=== PATIENT | male | born 1935 | race Caucasian/White ===

== ENCOUNTER → 2016-07-14 | Outpatient (CLI) | payer OTHER, MEDICARE | LOC: MMPC 11:11 | PROVIDERS: ATTEND Internal Medicine | DX: S32.011G Stable burst fracture of first lumbar vertebra, subsequent encounter for fracture with delayed healing (principal); K59.03 Drug induced constipation; T40.2X5A Adverse effect of other opioids, initial encounter | CPT/HCPCS: 99214; G0463 ==

== ENCOUNTER 2016-07-15 11:56 | Inpatient (IN) | payer OTHER, MEDICARE ==
[2016-07-15 12:41] LABS: BASOPHILS # (AUTO) 0.01 10*3/UL; BASOPHILS % (AUTO) 0.1 % (0-1); EOSINOPHILS % (AUTO) 0.2 % (0-8); HEMATOCRIT 40.3 % (42.0-52.0); HEMOGLOBIN 14.2 g/dL (14.0-18.0); IMM GRAN % (AUTO) 0.2 % (0-5); IMM GRAN# (AUTO) 0.02 10*3/UL; LYMPHOCYTES # (AUTO) 1.28 10*3/uL; LYMPHOCYTES % (AUTO) 12.9 % (10-50); MEAN CORPUSCULAR HEMOGLOBIN 30.9 PG (27-31); MEAN CORPUSCULAR HGB CONC 35.2 g/dL (33-37); MEAN PLATELET VOLUME 9.8 FL (7.4-12.2); MONOCYTES # (AUTO) 0.86 10*3/UL (0.3-0.8); MONOCYTES % (AUTO) 8.6 % (5-15); NEUTROPHILS # (AUTO) 7.76 10*3/UL; RDW COEFFICIENT OF VARIATION 12.5 % (11.5-14.5); WHITE BLOOD COUNT 9.95 10^3/uL (4.8-10.8)
[2016-07-15 12:42] LABS: PLATELET MORPHOLOGY COMMENT NORMAL MORPHOLOGY (NORM)
[2016-07-15 12:52] LABS: BILIRUBIN,TOTAL 1.4 mg/dL (0.3-1.2); BLOOD UREA NITROGEN 25 mg/dL (7-22); BUN/CREATININE RATIO 27.77 (6-20); CALCIUM 8.9 mg/dL (8.7-10.7); CHLORIDE 105 meq/L (98-112); CREATININE 0.9 mg/dL (0.70-1.50); GLUCOSE 124 mg/dL (78-110); SODIUM 137 meq/L (135-145)
[2016-07-15 12:53] LABS: ASPARTATE AMINO TRANSFERASE 18 IU/L (21-57); TOTAL PROTEIN 7.6 g/dL (6.1-8.0)
--- NOTE | 2016-07-15 13:05 | DI ---
XR RIBS W/PA CXR MIN 3VW,07/15/2016 12:18 PM: Clinical History: Right rib pain Previous Exam: 05 November 2013 Findings: Multiple views of the wall are obtained, and demonstrate some subsegmental atelectasis in the lung ba ses. There is no fracture identified. Visualized portions of the thoracic and lumbar spine demonstrate some compression deformities which a re not well evaluated on this exam. Impression: No evidence of displaced fracture. No evidence of pneumothorax.
[2016-07-15] MEDS ORDERED: Sodium Chloride 0.9% 1,000 ML PRIMARY IV ONE (13:10)
--- NOTE | 2016-07-15 14:16 | DI ---
CT CTA CHEST NONCORONARY W/WO,07/15/2016 1:09 PM: Clinical History: Right chest pain and elevated d-dimer. Previous Exam: None at this facility. Findings: Multiple helically acquired CT images are obtained through the chest following a CT chest angiogram p rotocol, and demonstrate a massive irregular thyroid gland with large hypodense masses within the inf erior left thyroid lobe. There are multiple pulmonary emboli noted predominantly on the right where t his involves the lobar branches. There are some segmental branches involved within the left lower lob e. There is a small right pleural effusion. Subsegmental atelectasis is also noted within the left lung base. Impression: 1. Bilateral pulmonary emboli worse on the right than the left. 2. Large thyroid masses predominantly involving the left lobe of the thyroid inferiorly. Consider son ographic evaluation.
--- NOTE | 2016-07-15 15:12 | PDOC ---
Chest Pain HPI - General Chief Complaint: Respiratory Complaint Stated Complaint: Rt rib pain, shortness of breath Date Seen by Provider: 07/15/16 Time Seen by Provider: 12:00 Source: Patient, Spouse, Old records Exam Limitations: POSITIVE: No limitations Treatment Prior to Arrival: REPORTS: None Nurse's Notes Reviewed & Considered: Yes - History of Present Illness Initial Comments: The patient is a 81 year old male complaining of pain to the anterolateral aspect of the right thorax. Patient states he was sleeping last night on a couch and he was awakened around 7 PM with pain, pleuritic in care provider, right anterolateral thorax. Recent past medical history is significant in that he fell out of some rafters and sustained a compression fracture of L1. This has been giving him quite a bit of pain and he does see Dr. Noyola for this and he does use a back brace; a new back brace has recently been ordered for him and his tells me that this back brace it should be arriving from [place] tomorrow. Patient also sustained a laceration to his left axilla during this fall, which has been repaired and has healed well. Patient uses a walker and has not been very active, especially since his fall on May 24. Patient has not had any recent coughs or fevers. No skin lesions. Body Location Affected: REPORTS: Chest (Right anterolateral thorax) Timing: REPORTS: Abrupt Duration: <24 hours (Onset first noted around 7 PM last night) Severity: Moderate Persistent/Worse since (date): 07/14/16 Persistent/Worse since (time): 19:00 Context: REPORTS: Rest Quality: REPORTS: "Pain", Sharpness, Tenderness Radiation: REPORTS: None Associated Symptoms: REPORTS: Shortness of Breath, Hurts to Breathe. DENIES: Nausea, Vomiting, Diaphoresis, Palpitations, Productive Cough (blood), Productive Cough (sputum), Weakness, Dizziness Modifying Factors: improves with: None Reported Similar Symptoms Previously: No Recently seen/treated/hospitalized: Yes (as above) Any Prior Injuries Related to Current Complaint?: No - Patient Home Medications Home Medications: Home Medications Hydrocodone/Acetaminophen [Hydrocodon-Acetaminophn 10-325] 1 tab PO Q4-6H #90 tab 06/30/16 - Patient Allergies Allergies/Adverse Reactions: Allergies Allergy/AdvReac Type Severity Reaction Status Date / Time No Known Drug Allergies Allergy NOT Verified 07/15/16 11:58 APPLICABLE Past Medical History - heen HEENT History: Dentures/Partials, Other (please comment) Additional HEENT History: WEARS GLASSES Cardiovascular History: Arrhythmia Additional Cardiovasular History: 2001 ARRYTHMIA BUT NO PROCEDURE DONE Respiratory History: Sleep Apnea Gastrointestinal History: GERD, Other (please comment) Additional Gastrointestinal History: OCCASSIONAL CONSTIPATION FROM NARCOTIC USE FOR BACK INJURY Genitourinary History: Denies History Endocrine History: Denies History Musculoskeletal History: Arthritis, Other (please comment) Prosthesis or Implant: No Additional Musculoskeletal History: RECENT FALL WITH COMPRESSION FRACTURE OF L2 Neurological History: Other (please comment) Additional Neurological History: OCCASIONAL VERTIGO Blood Disorders: Denies History Psychiatric History: Denies History History of Sexually Transmitted Diseases: No Male Reproductive History: Denies History Cancer History: Denies History In Past Year Been Physically Harmed or Verbally Threatened: No (PER PATIENT) History of MDRO: No History of Other Communicable Diseases: No Tobacco Use: Former Smoker Alcohol Use: Rarely Substance Use Type: None Previous Surgical History: Yes Type / Date of Surgery: tonsillectomy, hemorrhoidectomy/BILATERAL CATARACT EXT/ RIGHT KNEE SCOPE Anesthesia Reactions: No Malignant Hyperthermia: No Family History of Malignant Hyperthermia: No Significant Family History: Heart disease, Cancer Past Medical History Reviewed: Reviewed - No Changes ROS - Limitations ROS Limitations: No Limitations Constitution: REPORTS: Denies Symptoms Cardiovascular: REPORTS: Chest Pain (Pleuritic right-sided chest pain) Respiratory: REPORTS: Hurts To Breathe, Shortness Of Breath Neurological: REPORTS: Denies Neuro Symptoms Gastrointestinal: REPORTS: Denies GI Symptoms Endocrine: REPORTS: Denies Symptoms Musculoskeletal: REPORTS: Muscle Aches (Right anterolateral thorax) Genitourinary: REPORTS: Denies Symptoms Eyes: REPORTS: Denies Symptoms ENT: REPORTS: Denies Symptoms Skin: REPORTS: Denies Skin Symptoms Lympathic: REPORTS: Denies Lympathic Symptoms Immunologic: POSITIVE: Denies Symptoms Psychiatric: POSITIVE: Denies Psych Symptoms Chest Pain PE - General Appearance General Appearance: REPORTS: Alert, Cooperative, No Evidence of Trauma, Moderate Distress - HEENT HEENT: POSITIVE: Head Inspection Nml, Eyes Inspection Nml, Ears Inspection Nml, Nose Inspection Nml, Oral/Dental Inspect. Nml, Pharynx Inspect. Nml, PERRL, EOMI - Neck Neck: REPORTS: Normal Inspection, No Carotid Bruit - Respiratory Respiratory: REPORTS: No Respiratory Distress, Breath Sounds Normal, Chest Non- Tender - Cardiovascular Cardiovascular: REPORTS: Regular Rate and Rhythm, Heart Sounds Normal, Equal Pulses, Strong Pulses, No Murmur, No Gallop, No Friction Rub, No JVD, Other ( Some pain on palpation right anterolateral thorax) Peripheral Pulses: Radial (R): 2+, Radial (L): 2+ - Abdomen Abdomen: Soft: (All Quadrants), Normal Bowel Sounds: (All Quadrants), Denies Tenderness: (All Quadrants), No Splenomegaly: (All Quadrants), No Hepatomegaly: (All Quadrants), No Guarding: (All Quadrants), No Rebound: (All Quadrants), No Palpable Pulse: (All Quadrants), No Palpabale Mass: (All Quadrants), No Distention: (All Quadrants), No Rigidity: (All Quadrants) - Skin Skin: REPORTS: Intact, Normal For Race, Warm, Dry, No Rash - Extremities Extremity: Non-Tender: (All Extremities), Normal ROM: (All Extremities), Normal Inspection: (All Extremities) - Neurological / Psychological Neurological: POSITIVE: Oriented X3, silk spotter Normal As Tested, Motor Normal, Sensation Normal, 5, 6 Images - Complete Complete: 1 - Area of described pain was some pain on palpation Chest Pain Progress - Results Reviewed by me Xrays/CTs/US Reviewed by me: Yes Discussed with Radiologist: Yes Radiology Findings: Bilateral pulmonary emboli on CTA, right greater than left. Enlarged thyroid also noted incidentally. Lab Results Reviewed: Yes (d-dimer 3.55) Lab Results:: Laboratory Results 07/15/16 Range/Units 12:32 WBC 9.95 (4.8-10.8) 10^3/uL RBC 4.60 L (4.70-6.10) 10^6/uL Hgb 14.2 (14.0-18.0) g/dL Hct 40.3 L (42.0-52.0) % MCV 87.6 (80-90) FL MCH 30.9 (27-31) PG MCHC 35.2 (33-37) g/dL RDW Std Deviation 38.9 L (39-50) fL RDW Coeff of Sj 12.5 (11.5-14.5) % Plt Count 221 (140-350) 10*3/uL MPV 9.8 (7.4-12.2) FL Immature Gran % (Auto) 0.2 (0-5) % Neut % (Auto) 78.0 (50-80) % Lymph % (Auto) 12.9 (10-50) % [place] % (Auto) 8.6 (5-15) % Eos % (Auto) 0.2 (0-8) % Baso % (Auto) 0.1 (0-1) % Immature Gran # (Auto) 0.02 10*3/UL Neut # (Auto) 7.76 10*3/UL Lymph # (Auto) 1.28 10*3/uL [place] # (Auto) 0.86 H (0.3-0.8) 10*3/UL Eos # (Auto) 0.02 10*3/UL Baso # (Auto) 0.01 10*3/UL WBC Morphology Comment Normal morphology (NORM) Plt Morphology Comment Normal morphology (NORM) RBC Morph Comment Normal morphology (NORM) D-Dimer 3.55 H (0.00-0.59) mg/L Sodium 137 (135-145) meq/L Potassium 4.0 (3.8-5.2) meq/L Chloride 105 (98-112) meq/L Carbon Dioxide 22 L (23-33) meq/L Anion Gap 10 (5-20) BUN 25 H (7-22) mg/dL Creatinine 0.9 (0.70-1.50) mg/dL Estimated GFR Metal Furniture Assembler BUN/Creatinine Ratio 27.77 H (6-20) Glucose 124 H (78-110) mg/dL Calculated Osmolality 288.0 (267-292) mOsm/kg Calcium 8.9 (8.7-10.7) mg/dL Total Bilirubin 1.4 H (0.3-1.2) mg/dL AST 18 L (21-57) IU/L ALT 24 (21-72) IU/L Alkaline Phosphatase 69 (38-126) IU/L Total Protein 7.6 (6.1-8.0) g/dL Albumin 4.0 (3.5-4.8) g/dL Globulin 3.6 (2.50-4.10) g/dL Albumin/Globulin Ratio 1.10 L (1.3-2.0) mg/g - Patient's Progress Pain Medication Addressed: POSITIVE: No School/Work Release Addressed: POSITIVE: Not Applicable Re-Examine Time: 14:00 Status: POSITIVE: Improved, Re-Examined - Consult Consult (If Yes, Name of Consulting MD & Time Called): Yes (Dr. Butler, hospitalist, 1400) Consulting MD will see pt:: POSITIVE: [facility] [place] Admit Counseled: POSITIVE: Patient, Family, RE: Lab Results, RE: Radiology Results, RE : DX, RE: Need for F/U Patient Care Time - Estimated PCT Patient Care Time (In Minutes): 50 Vital Signs - Recent Vital Signs Vital Signs: Vital Signs (Last 8 hours) Temp Pulse Pulse Resp BP BP Pulse Ox 07/15/16 14:40 98.7 F 75 17 121/75 93 07/15/16 14:38 98.7 F 84 17 125/71 93 07/15/16 11:56 98.1 F 84 21 125/71 93 - VS Reviewed Vital Signs Reviewed: Yes Discharge Clinical Impression: Pulmonary embolism, Thyroid mass of unclear etiology Discharge Disposition: Admit to Inpatient Condition: Fair Date Decision to Admit to Inpatient: 07/15/16 Time Decision to Admit to Inpatient: 13:45
[2016-07-15] MEDS ORDERED: NORMAL SALINE 10 ML SYRINGE FLUSH IVP PRN (15:30)
--- NOTE | 2016-07-15 15:37 | PDOC ---
History and Physical - History of Present Illness Date and Time of Service: 07/15/2016 3 PM Chief Complaint: Right-sided chest pain that started last night History of Present Illness: This is a 81 years old male with medical history significant for admission back in May after a fall that resulted in L1 compression fracture and also sacral fracture after his hospital stay he was discharged home he continued to go to physical therapy but he said his pain continued so he was seen by the neurosurgeon and they're arranging for him to get a brace, in addition he is getting pain medication trying to control his pain. Last night he developed the pain in the right side of the chest worse this morning he couldn't take a deep breath and he came into the ER evaluation in the ER revealed an elevated d- dimer and a CT of the chest showed bilateral pulmonary emboli worse on the right compared to the left and hence the admission. He did report swelling in his legs but this is being going on since his last admission. No pain in his legs. Past Medical History Medical History: 1. Bilateral knee osteoarthritis. 2. Admission in May after a fall that resulted in L1 fracture and sacral fracture. He also had the laceration under his left axilla. Surgical History: 1. Bilateral cataracts. 2. Hemorrhoid repair. 3. Colonoscopy in 2008 Pertinent Family History: Significant for colon cancer. His mother of a heart attack many years ago. Past Social History: , has 3 kids described as healthy, does not smoke, drinks occasionally. Tobacco Use: Former Smoker Substance Use Type: None Alcohol Use: Rarely Medication / Allergies Home Medications: Home Medications Medication Instructions Recorded Confirmed Type Hydrocodone/Acetaminophen 1 tab PO Q4-6H #90 tab 06/30/16 07/15/16 Clinic [Hydrocodon-Acetaminophn 10-325] Allergies/Adverse Reactions: Allergies Allergy/AdvReac Type Severity Reaction Status Date / Time No Known Drug Allergies Allergy NOT Verified 07/16/16 02:23 APPLICABLE Review of Systems - Review of Systems All Systems: Reviewed & No Additional Complaints Except as Stated Exam - Vitals Vital Signs: Vital Signs Temperature 98.4 F Temperature Source Temporal Artery Scan Pulse Rate [Pulse Oximeter] 76 Pulse Rate 75 Respiratory Rate 20 Blood Pressure [Left Arm] 146/77 Blood Pressure 121/75 Pulse Ox 94 Oxygen Flow Rate 2 Oxygen Delivery Method Nasal Cannula Height 5 ft 9 in Weight 194 lb - General General Appearance: POSITIVE: No Acute Distress, Cooperative - Head Head Exam: POSITIVE: Normal Inspection - Eye Eye Exam: POSITIVE: Normal Appearance - ENT ENT Exam: POSITIVE: Normal Exam - Neck Neck Exam: POSITIVE: Normal Inspection - Respiratory Respiratory Exam: POSITIVE: Clear to Auscultation - Bilaterally - Cardiovascular Cardiovascular Exam: POSITIVE: RRR - GI/Abdominal GI/Abdominal Exam: POSITIVE: Normal Bowel Sounds, Non Tender, Non Distended - Rectal Rectal Exam: POSITIVE: Deferred - External Exam: POSITIVE: Deferred - Extremities Extremities Exam: POSITIVE: +1 Edema Additional Extremities Exam Details: There is swelling in both legs worse on the left compared to the right - Back Back Exam: POSITIVE: Normal Inspection - Neurological Neurological Exam: POSITIVE: Alert, Oriented x 3, CN II-XII Intact, Moves All Extremities Equally - Psychiatric Psychiatric Exam: POSITIVE: Normal Affect - Integumentary Integumentary Exam: POSITIVE: Normal Color Results - Labs CBC and BMP: 07/15/16 12:32 07/15/16 12:32 - Imaging Status: Report Reviewed by Me (CT of the chest showed bilateral pulmonary emboli worse on the right than the left, large thyroid masses predominantly involving the left lobe of the thyroid inferiorly) Assessment and Plan - Patient Problems (1) Pulmonary emboli Current Visit: Yes Status: Acute Comment: The CT that he had showed bilateral pulmonary emboli, worse on the right compared to the left. After discussion I think will put him on eliquis will watch him we'll watch his pain level and his oxygen needs and then go from there. Will order an ultrasound of his legs for tomorrow. (2) Compression fracture of first lumbar vertebra Current Visit: No Status: Acute Comment: This is old continue previous pain medications Qualifiers: Encounter type: initial encounter Fracture type: closed Qualified Description: Compression fracture of first lumbar vertebra, closed, initial encounter Qualifier Code(s): (S32.010A) Wedge compression fracture of first lumbar vertebra, initial encounter for closed fracture
[2016-07-15] MEDS ORDERED: HYDROcodone-APAP 10 MG-325 MG TABLET PO SCH (15:45)
[2016-07-15] MEDS: Apixaban 5 MG TABLET PO SCH ×2 (15:46→20:53)
[2016-07-15] MEDS ORDERED: CALCIUM CARBONATE 500 MG (TUMS) CHEWABLE TABLET PO PRN (20:31)
[2016-07-15] MEDS ORDERED: CALCIUM CARBONATE 500 MG (TUMS) CHEWABLE TABLET PO ONE (20:53)
[2016-07-15] MEDS: HYDROcodone-APAP 10 MG-325 MG TABLET PO PRN (20:53)
--- NOTE | 2016-07-16 07:37 | PDOC(PROG) ---
Date and Time of Service: 07/16/2016 7:37 AM Interval History: Subjective Patient feels better, the pain in his chest is gone now. No shortness of breath. He still have pain in his back. Objective : Data - Labs CBC and BMP: 07/16/16 09:10 07/15/16 12:32 Objective : Exam - General General Appearance: No Acute Distress, Cooperative - Head Head Exam: Normal Inspection, Atraumatic - Eye Eye Exam: Normal Appearance - ENT ENT Exam: Normal Exam - Neck Neck Exam: Normal Inspection - Respiratory Additional Respiratory Exam Details: Slightly decreased breath sound on the right lung base - Cardiovascular Cardiovascular Exam: RRR - GI/Abdominal GI/Abdominal Exam: Normal Bowel Sounds, Non Tender, Non Distended, Soft - Rectal Rectal Exam: Deferred - External Exam: Deferred - Extremities Extremities Exam: +1 Edema - Back Back Exam: Normal Inspection - Neurological Neurological Exam: Alert, Oriented x 3, CN II-XII Intact - Psychiatric Psychiatric Exam: Normal Affect - Integumentary Integumentary Exam: Normal Color Assessment and Plan - Patient Problems (1) Pulmonary emboli Current Visit: Yes Status: Acute Comment: He is on eliquis continue. I think will watch him another night we'll see how things look tomorrow then will decide whether he is ready to go home. will do an ECHO (2) Compression fracture of first lumbar vertebra Current Visit: No Status: Acute Comment: Continue current pain medications Qualifiers: Encounter type: initial encounter Fracture type: closed Qualified Description: Compression fracture of first lumbar vertebra, closed, initial encounter Qualifier Code(s): (S32.010A) Wedge compression fracture of first lumbar vertebra, initial encounter for closed fracture (3) DVT (deep venous thrombosis) Current Visit: Yes Status: Acute Comment: Ultrasound per my discussion with the technologist suggest DVT in the left leg. Continue same treatment.
[2016-07-16] MEDS: HYDROcodone-APAP 10 MG-325 MG TABLET PO PRN ×2 (07:59→21:38)
[2016-07-16] MEDS: POLYETHYLENE GLYCOL 3350 17 GM POWDER PO SCH (08:00)
[2016-07-16] MEDS: Apixaban 5 MG TABLET PO SCH ×2 (08:00→21:37)
[2016-07-16 09:19] LABS: BASOPHILS # (AUTO) 0.02 10*3/UL; BASOPHILS % (AUTO) 0.3 % (0-1); EOSINOPHILS % (AUTO) 0.4 % (0-8); IMM GRAN % (AUTO) 0.1 % (0-5); IMM GRAN# (AUTO) 0.01 10*3/UL; LYMPHOCYTES # (AUTO) 1.15 10*3/uL; LYMPHOCYTES % (AUTO) 17.2 % (10-50); MEAN CORPUSCULAR HEMOGLOBIN 29.9 PG (27-31); MEAN CORPUSCULAR HGB CONC 34.2 g/dL (33-37); MEAN PLATELET VOLUME 9.9 FL (7.4-12.2); MONOCYTES # (AUTO) 0.81 10*3/UL (0.3-0.8); MONOCYTES % (AUTO) 12.1 % (5-15); NEUTROPHILS # (AUTO) 4.66 10*3/UL; NEUTROPHILS % (AUTO) 69.9 % (50-80); RDW COEFFICIENT OF VARIATION 12.3 % (11.5-14.5); RED BLOOD COUNT 4.35 10^6/uL (4.70-6.10); WHITE BLOOD COUNT 6.68 10^3/uL (4.8-10.8)
[2016-07-16 09:21] LABS: PLATELET MORPHOLOGY COMMENT NORMAL MORPHOLOGY (NORM)
--- NOTE | 2016-07-16 13:06 | DI ---
US UP/LOW EXTREMITY VEINS B/L,07/16/2016 7:00 AM: Clinical History: Pulmonary emboli and lower extremity swelling. Previous Exam: None at this facility. Findings: Multiple grayscale and color Doppler sonographic images are obtained through the deep veins of both l ower extremities, and demonstrate complete coaptation upon graded compression throughout the deep vei ns of the right lower extremity. Within the left lower extremity, there is a nonocclusive thrombus involving the left popliteal vein. Impression: 1. Thrombus of the left popliteal vein.
[2016-07-17] MEDS: POLYETHYLENE GLYCOL 3350 17 GM POWDER PO SCH (08:36)
[2016-07-17] MEDS: Apixaban 5 MG TABLET PO SCH (08:36)
--- NOTE | 2016-07-17 09:06 | PDOC(PROG) ---
Date and Time of Service: 07/17/2016 9 AM Interval History: Subjective Patient feeling okay denying symptoms. No chest pain. No shortness of breath. Objective : Data - Labs CBC and BMP: 07/16/16 09:10 07/15/16 12:32 Labs - Last 24 Hours: Laboratory Results 07/16/16 Range/Units 09:10 WBC 6.68 (4.8-10.8) 10^3/uL RBC 4.35 L (4.70-6.10) 10^6/uL Hgb 13.0 L (14.0-18.0) g/dL Hct 38.0 L (42.0-52.0) % MCV 87.4 (80-90) FL MCH 29.9 (27-31) PG MCHC 34.2 (33-37) g/dL RDW Std Deviation 38.8 L (39-50) fL RDW Coeff of Sj 12.3 (11.5-14.5) % Plt Count 222 (140-350) 10*3/uL MPV 9.9 (7.4-12.2) FL Immature Gran % (Auto) 0.1 (0-5) % Neut % (Auto) 69.9 (50-80) % Lymph % (Auto) 17.2 (10-50) % [place] % (Auto) 12.1 (5-15) % Eos % (Auto) 0.4 (0-8) % Baso % (Auto) 0.3 (0-1) % Immature Gran # (Auto) 0.01 10*3/UL Neut # (Auto) 4.66 10*3/UL Lymph # (Auto) 1.15 10*3/uL [place] # (Auto) 0.81 H (0.3-0.8) 10*3/UL Eos # (Auto) 0.03 10*3/UL Baso # (Auto) 0.02 10*3/UL WBC Morphology Comment Normal morphology (NORM) Plt Morphology Comment Normal morphology (NORM) RBC Morph Comment Normal morphology (NORM) Troponin I 0.010 (< 0.040) ng/mL Objective : Exam - General General Appearance: No Acute Distress, Cooperative - Head Head Exam: Normal Inspection - Eye Eye Exam: Normal Appearance - Neck Neck Exam: Normal Inspection - Respiratory Respiratory Exam: Clear to Auscultation - Bilaterally - Cardiovascular Cardiovascular Exam: RRR - GI/Abdominal GI/Abdominal Exam: Normal Bowel Sounds, Non Tender, Non Distended, Soft - Rectal Rectal Exam: Deferred - External Exam: Deferred - Extremities Extremities Exam: Normal Inspection - Back Back Exam: Normal Inspection - Neurological Neurological Exam: Alert, Oriented x 3, CN II-XII Intact - Psychiatric Psychiatric Exam: Normal Affect - Integumentary Integumentary Exam: Normal Color Assessment and Plan - Patient Problems (1) Pulmonary emboli Current Visit: Yes Status: Acute Comment: He is improving however he cannot afford the eliquis so we will switch him to Lovenox check his INR and probably also start Coumadin tonight. We will keep him another night. (2) Compression fracture of first lumbar vertebra Current Visit: No Status: Acute Comment: Same medications Qualifiers: Encounter type: initial encounter Fracture type: closed Qualified Description: Compression fracture of first lumbar vertebra, closed, initial encounter Qualifier Code(s): (S32.010A) Wedge compression fracture of first lumbar vertebra, initial encounter for closed fracture (3) DVT (deep venous thrombosis) Current Visit: Yes Status: Acute Comment: He'll be on Lovenox and Coumadin instead of the eliquis (4) Thyromegaly Current Visit: Yes Status: Acute Comment: He needs a ultrasonic of the thyroid I told him as an outpatient.
[2016-07-17 09:27] LABS: PROTHROMBIN TIME 11.4 secs (9.7-11.4)
[2016-07-17] MEDS: Warfarin 5 MG TAB PO SCH (21:40)
[2016-07-17] MEDS: ENOXAPARIN SODIUM 100 MG/1 ML SYRINGE SUBCUT SCH (21:41)
[2016-07-18 06:33] LABS: PROTHROMBIN TIME 11.3 secs (9.7-11.4)
[2016-07-18 06:47] LABS: FREE T4 (FREE THYROXINE) 2.65 ng/dL (0.93-1.71)
[2016-07-18] MEDS: ENOXAPARIN SODIUM 100 MG/1 ML SYRINGE SUBCUT SCH ×2 (08:23→20:55)
--- NOTE | 2016-07-18 08:58 | PDOC(PROG) ---
Date and Time of Service: 07/18/2016 8:45 AM Interval History: Subjective Patient denying chest pain, no shortness of breath. Some swelling in his legs but no other symptoms. Objective : Data - Labs CBC and BMP: 07/16/16 09:10 07/15/16 12:32 Labs - Last 24 Hours: Laboratory Results 07/16/16 07/17/16 07/18/16 Range/Units 05:48 09:05 06:07 PT 11.4 11.3 (9.7-11.4) secs INR 1.10 1.10 (0.00-5.90) N/A TSH 0.015 L (0.2700-4.2000) uIU/mL Free T4 2.65 H (0.93-1.71) ng/dL Objective : Exam - General General Appearance: No Acute Distress, Cooperative - Head Head Exam: Normal Inspection - Eye Eye Exam: Normal Appearance - ENT ENT Exam: Normal Exam - Neck Neck Exam: Normal Inspection - Respiratory Additional Respiratory Exam Details: Slightly decreased breath sounds on the right lung base - Cardiovascular Cardiovascular Exam: RRR - GI/Abdominal GI/Abdominal Exam: Normal Bowel Sounds, Non Tender, Non Distended, Soft - Rectal Rectal Exam: Deferred - External Exam: Deferred - Extremities Extremities Exam: Normal Inspection - Back Back Exam: Normal Inspection - Neurological Neurological Exam: Alert, Oriented x 3, CN II-XII Intact, Moves All Extremities Equally - Psychiatric Psychiatric Exam: Normal Affect - Integumentary Integumentary Exam: Normal Color Assessment and Plan - Patient Problems (1) Pulmonary emboli Current Visit: Yes Status: Acute Comment: Continue Lovenox and Coumadin we started those last night because he could not afford eliquis and today he and his were concerned about the cost of Lovenox, so I think we'll keep him now on the Lovenox and Coumadin and wait for the disease case manager rn to check the cost of Lovenox and if still expensive I told him we'll keep him here until his INR is therapeutic and then will discharge him on Coumadin only. (2) Compression fracture of first lumbar vertebra Current Visit: No Status: Acute Comment: Same pain medication Qualifiers: Encounter type: initial encounter Fracture type: closed Qualified Description: Compression fracture of first lumbar vertebra, closed, initial encounter Qualifier Code(s): (S32.010A) Wedge compression fracture of first lumbar vertebra, initial encounter for closed fracture (3) DVT (deep venous thrombosis) Current Visit: Yes Status: Acute Comment: Same treatment with Lovenox and Coumadin (4) Thyromegaly Current Visit: Yes Status: Acute Comment: This need F/U as an outpatient with US
[2016-07-18] MEDS: POLYETHYLENE GLYCOL 3350 17 GM POWDER PO SCH (09:43)
[2016-07-18] MEDS: Warfarin 5 MG TAB PO SCH (20:55)
[2016-07-19] MEDS: HYDROcodone-APAP 10 MG-325 MG TABLET PO PRN ×2 (02:47→16:41)
[2016-07-19 07:00] LABS: PROTHROMBIN TIME 11.6 secs (9.7-11.4)
[2016-07-19] MEDS: POLYETHYLENE GLYCOL 3350 17 GM POWDER PO SCH (08:38)
[2016-07-19] MEDS: ENOXAPARIN SODIUM 100 MG/1 ML SYRINGE SUBCUT SCH ×2 (08:57→20:21)
[2016-07-19 13:32] LABS: FREE T4 (FREE THYROXINE) 2.78 ng/dL (0.93-1.71)
--- NOTE | 2016-07-19 19:36 | PDOC(PROG) ---
Date and Time of Service: 07/19/2015, 1930 Interval History: Seen the patient to a 3 times a day now, evaluated earlier and evaluated this evening. No complains of chest pain, shortness breath, nausea or vomiting. His breathing is significantly better. The patient notes to me that he has lost about 35 pounds in the last couple of months. The patient's TSH and free T4 suggested hyperthyroidism on admission, and I repeated those for confirmation and they indeed are positive for hyperthyroidism. I did an ultrasound and the results are pending until tomorrow. From the standpoint of the blood clot, we feel that we have a good plan with Lovenox and Coumadin, but I did not feel comfortable sending him home with hyperthyroidism until we have the ultrasound results and we can discuss with either surgery and/or endocrinology in [place] tomorrow. At this point, I'm going to hold off on suppressive therapy, and if he develops any tachycardia I will start a beta rayna. Objective : Data - Labs CBC and BMP: 07/16/16 09:10 07/15/16 12:32 Labs - Last 24 Hours: Laboratory Results 07/19/16 07/19/16 Range/Units 06:00 12:29 PT 11.6 H (9.7-11.4) secs INR 1.12 (0.00-5.90) N/A TSH < 0.015 L (0.2700-4.2000) uIU/mL Free T4 2.78 H (0.93-1.71) ng/dL Objective : Exam - General General Appearance: No Acute Distress, Cooperative Additional General Exam Details: Vital Signs - Last Taken Temperature 98.8 F 07/19/16 16:00 Pulse Rate 64 07/19/16 16:00 Respiratory Rate 18 07/19/16 16:00 Blood Pressure 141/71 07/19/16 16:00 Pulse Ox 95 07/19/16 16:00 - Head Head Exam: Normal Inspection, Normocephalic, Atraumatic - Eye Eye Exam: No Scleral Icterus - Neck Neck Exam: Normal Inspection, No Tenderness, No Thyromegaly Additional Neck Exam Details: I don't appreciate any thyromegaly. Might be a little more full on the right, but it's very difficult to appreciate and subtle - Respiratory Respiratory Exam: Clear to Auscultation - Bilaterally, Breathing Non Labored - Cardiovascular Cardiovascular Exam: RRR, No Murmur, No Clicks, No Gallops, No Rubs, No JVD - GI/Abdominal GI/Abdominal Exam: Normal Bowel Sounds, Non Tender, Non Distended, Soft - Extremities Extremities Exam: No Clubbing Present, No Edema Present, No Cyanosis Present - Neurological Neurological Exam: Alert, Oriented x 3, No Facial Droop, Speech Intact / Clear, Moves All Extremities Equally - Psychiatric Psychiatric Exam: Normal Affect, Normal Mood Assessment and Plan - Patient Problems (1) Pulmonary emboli Current Visit: Yes Status: Acute (2) Hyperthyroidism Current Visit: Yes Status: Acute (3) DVT (deep venous thrombosis) Current Visit: Yes Status: Acute Qualifiers: DVT location: lower extremity Affected thrombotic vein of extremity: popliteal Laterality: left Chronicity: acute Qualified Description: Acute deep vein thrombosis (DVT) of popliteal vein of left lower extremity Qualifier Code(s): (I82.432) Acute embolism and thrombosis of left popliteal vein (4) Sacral fracture Current Visit: Yes Status: Chronic Qualifiers: Encounter type: subsequent encounter Zone of sacrum fracture: unspecified portion of sacrum Fracture type: closed Fracture healing: with routine healing Qualified Description: Closed fracture of sacrum with routine healing, unspecified portion of sacrum, subsequent encounter Qualifier Code(s): (S32.10XD) Unspecified fracture of sacrum, subsequent encounter for fracture with routine healing (5) Thyromegaly Current Visit: Yes Status: Acute - Assessment / Plan Additional Assessment/Plan Details: Given the abnormal imaging findings to this point, an elevated free T4 with a suppressed TSH, I think the patient has hyperthyroidism with an unclear etiology. He's lost a significant amount of weight since his accident in April, and it's probably related to hyperthyroidism. Thyromegaly and abnormal appearance are concerning to me for potential malignancy, although thyroiditis may also be a possibility. Either way, I think the safest thing to do for the patient is to await the ultrasound results and discuss with endocrinology and/or surgery for further evaluation and workup. Continue Lovenox and Coumadin for pulmonary emboli/oxygen if necessary. We have a plan outpatient to do 5 days of Lovenox with Coumadin as bridging therapy until the INR is between 2 and 3. The patient could not afford to do 10 days on Lovenox due to cost of the medication. PT and OT and pain medications for sacral fracture. I discussed the above plan with the patient and his and they agreed.
[2016-07-19] MEDS: Warfarin 5 MG TAB PO SCH (20:21)
[2016-07-20 06:02] LABS: PROTHROMBIN TIME 13.2 secs (9.7-11.4)
[2016-07-20 07:13] VITALS: TEMP 98
[2016-07-20] MEDS: ENOXAPARIN SODIUM 100 MG/1 ML SYRINGE SUBCUT SCH (08:15)
[2016-07-20] MEDS: POLYETHYLENE GLYCOL 3350 17 GM POWDER PO SCH (08:15)
[2016-07-20 11:18] VITALS: RESP 17
--- NOTE | 2016-07-20 11:21 | DI ---
History: Hyperthyroidism with weight loss. Pulmonary nodules. Evaluate for metastatic disease. Thyroid ultrasound performed using a high frequency transducer. Prior study: CT scan performed 07/15/16. Findings: The right thyroid lobe is the smaller of the 2 measuring 4.4 cm x 3 x 2.3 cm. On the left s wiley, a measurement of 6.6 x 3.3 x 4.6 cm is recorded although a good portion of the thyroid lobe on t he left side is positioned behind the first rib and manubrium and not well visualized. Regarding the appearance on the CT scan, this is an area of relatively low attenuation. On the ultrasound, the thyroid parenchyma is heterogeneous but no obvious focal nodule identified. IMPRESSION: Overall size of the gland is definitely increased and asymmetric. Regarding the CT scan, there is compelling evidence of low attenuation in this area on the left side and is probably most li tod due to render abnormal thyroid tissue. I see that a thyroid scan is pending. This may provide ad ditional information regarding endocrinologic status of the gland. Typically, fine-needle aspiration biopsy is suggested in this instance, but in this case, a CT-guided biopsy of the gland using a sprin g-loaded device just above the sternal notch on the left side may be considered
--- NOTE | 2016-07-20 12:25 | DCSUMMARY ---
Hospitalization Summary Admit Date: 07/15/16 Discharge Date: 07/20/16 Primary Diagnosis:: Acute pulmonary embolism Secondary Diagnosis:: hyperthyroidism, question Grave's disease vs. malignancy Hospital Course: This is a 81 YO male that was admitted with chest pain and found to have a pulmonary embolism. Ultrasound also found left leg DVT. The patient was initially on eliquis, but could not afford that therapy, so was switched to coumadin and lovenox. INR at discharge is 1.28. Today is day 4 of therapy on coumadin. His is very comfortable with subcutaneous injections and will give him lovenox injections for the next 5 days at home. That was all they could afford. The patient has lost 34 to 37 pounds. We found that the patient has hyperthyroidism. CT scan of the chest showed abnormal thyroid gland. An ultrasound shows an enlarged thyroid, left side greater than the right side. There is no overt mass on the ultrasound. A thyroid uptake scan has been scheduled. We were able to arrange an appointment with Dr. Lott, the biopharmaceutical rep in [place], [place]. We are also drawing thyroid antibodies that are pending at this time. We'll put the patient on methimazole after his thyroid uptake scan to calm his thyroid down. I do believe that the weight loss is from the thyroid. Overall this appears to be an unprovoked blood clot as I think it's too far outside of the fall the patient had back in April to be considered related to trauma. That said, based on the patient's age, I think he should remain on Coumadin for life. I discussed that with him in detail. Today, no completes of chest pain, no shortness breath, back pain persists but overall is still better than at the initial time of the fall. Assessment and Plan: 1. As per discharge assessments noted 2. Disposition: Patient is discharged home. 3. Condition on discharge, stable and improved. 4. Diet: regular diet 5. Activities: resume normal activities 6. Follow-Up: 1. Primary care provider on the and 2. Endocrinology on August 12 7. Medications at the Time of Discharge: Home Medications Medication Instructions Recorded Confirmed Type Hydrocodone/Acetaminophen 1 tab PO Q4-6H #90 tab 06/30/16 07/15/16 Clinic [Hydrocodon-Acetaminophn 10-325] Enoxaparin Inj [Lovenox Inj] 90 mg SUBCUT Q12H #20 syringe 07/19/16 Rx HYDROcodone/APAP 10/325 Tab 1 tab PO Q4H PRN #30 tab 07/19/16 Rx [[place] 10/325 Tab] Polyeth Glycol 3350 Packet 17 gm PO DAILY #30 powd.pack 07/19/16 Rx [Miralax Packet] Warfarin Sodium [Coumadin] 5 mg PO BEDTIME #30 tab 07/19/16 Rx Methimazole [Northyx] 10 mg PO BID #60 tablet 07/20/16 Rx 8. Time, care, counseling and coordination of care for this discharge is greater than 30 minutes. Exam - Vitals Vital Signs: Vital Signs Temperature 98 F Temperature Source Temporal Artery Scan Pulse Rate [Apical] 86 Pulse Rate [Pulse Oximeter] 82 Pulse Rate 69 Respiratory Rate 17 Blood Pressure [Left Arm] 119/62 Blood Pressure 121/75 Pulse Ox 92 Oxygen Flow Rate 1 Oxygen Delivery Method Room Air Height 5 ft 9 in Weight 183 lb 12.8 oz - General General Appearance: POSITIVE: No Acute Distress, Cooperative - Head Head Exam: POSITIVE: Atraumatic - Eye Eye Exam: POSITIVE: No Scleral Icterus - Respiratory Respiratory Exam: POSITIVE: Clear to Auscultation - Bilaterally, Breathing Non Labored - Cardiovascular Cardiovascular Exam: POSITIVE: RRR, No Murmur, No Clicks, No Gallops, No Rubs, No JVD - GI/Abdominal GI/Abdominal Exam: POSITIVE: Non Tender, Non Distended, Soft - Extremities Extremities Exam: POSITIVE: No Clubbing Present, No Edema Present, No Cyanosis Present - Neurological Neurological Exam: POSITIVE: Alert, Oriented x 3, Normal Gait, No Facial Droop, Speech Intact / Clear, Moves All Extremities Equally - Psychiatric Psychiatric Exam: POSITIVE: Normal Affect, Normal Mood Data Perinent Studies: Laboratory Results 07/15/16 07/16/16 07/16/16 Range/Units 12:32 05:48 09:10 WBC 9.95 6.68 (4.8-10.8) 10^3/uL RBC 4.60 L 4.35 L (4.70-6.10) 10^6/uL Hgb 14.2 13.0 L (14.0-18.0) g/dL Hct 40.3 L 38.0 L (42.0-52.0) % MCV 87.6 87.4 (80-90) FL MCH 30.9 29.9 (27-31) PG MCHC 35.2 34.2 (33-37) g/dL RDW Std Deviation 38.9 L 38.8 L (39-50) fL RDW Coeff of Sj 12.5 12.3 (11.5-14.5) % Plt Count 221 222 (140-350) 10*3/uL MPV 9.8 9.9 (7.4-12.2) FL Immature Gran % (Auto) 0.2 0.1 (0-5) % Neut % (Auto) 78.0 69.9 (50-80) % Lymph % (Auto) 12.9 17.2 (10-50) % Parmer % (Auto) 8.6 12.1 (5-15) % Eos % (Auto) 0.2 0.4 (0-8) % Baso % (Auto) 0.1 0.3 (0-1) % Immature Gran # (Auto) 0.02 0.01 10*3/UL Neut # (Auto) 7.76 4.66 10*3/UL Lymph # (Auto) 1.28 1.15 10*3/uL Parmer # (Auto) 0.86 H 0.81 H (0.3-0.8) 10*3/UL Eos # (Auto) 0.02 0.03 10*3/UL Baso # (Auto) 0.01 0.02 10*3/UL WBC Morphology Comment Normal morphology Normal morphology (NORM) Plt Morphology Comment Normal morphology Normal morphology (NORM) RBC Morph Comment Normal morphology Normal morphology (NORM) PT (9.7-11.4) secs INR (0.00-5.90) N/A D-Dimer 3.55 H (0.00-0.59) mg/L Sodium 137 (135-145) meq/L Potassium 4.0 (3.8-5.2) meq/L Chloride 105 (98-112) meq/L Carbon Dioxide 22 L (23-33) meq/L Anion Gap 10 (5-20) BUN 25 H (7-22) mg/dL Creatinine 0.9 (0.70-1.50) mg/dL Estimated GFR Layer Out BUN/Creatinine Ratio 27.77 H (6-20) Glucose 124 H (78-110) mg/dL Calculated Osmolality 288.0 (267-292) mOsm/kg Calcium 8.9 (8.7-10.7) mg/dL Total Bilirubin 1.4 H (0.3-1.2) mg/dL AST 18 L (21-57) IU/L ALT 24 (21-72) IU/L Alkaline Phosphatase 69 (38-126) IU/L Troponin I 0.010 (< 0.040) ng/mL Total Protein 7.6 (6.1-8.0) g/dL Albumin 4.0 (3.5-4.8) g/dL Globulin 3.6 (2.50-4.10) g/dL Albumin/Globulin Ratio 1.10 L (1.3-2.0) mg/g TSH 0.015 L (0.2700-4.2000) uIU/mL Free T4 2.65 H (0.93-1.71) ng/dL 07/17/16 07/18/16 07/19/16 Range/Units 09:05 06:07 06:00 WBC (4.8-10.8) 10^3/uL RBC (4.70-6.10) 10^6/uL Hgb (14.0-18.0) g/dL Hct (42.0-52.0) % MCV (80-90) FL MCH (27-31) PG MCHC (33-37) g/dL RDW Std Deviation (39-50) fL RDW Coeff of Sj (11.5-14.5) % Plt Count (140-350) 10*3/uL MPV (7.4-12.2) FL Immature Gran % (Auto) (0-5) % Neut % (Auto) (50-80) % Lymph % (Auto) (10-50) % Parmer % (Auto) (5-15) % Eos % (Auto) (0-8) % Baso % (Auto) (0-1) % Immature Gran # (Auto) 10*3/UL Neut # (Auto) 10*3/UL Lymph # (Auto) 10*3/uL Parmer # (Auto) (0.3-0.8) 10*3/UL Eos # (Auto) 10*3/UL Baso # (Auto) 10*3/UL WBC Morphology Comment (NORM) Plt Morphology Comment (NORM) RBC Morph Comment (NORM) PT 11.4 11.3 11.6 H (9.7-11.4) secs INR 1.10 1.10 1.12 (0.00-5.90) N/A D-Dimer (0.00-0.59) mg/L Sodium (135-145) meq/L Potassium (3.8-5.2) meq/L Chloride (98-112) meq/L Carbon Dioxide (23-33) meq/L Anion Gap (5-20) BUN (7-22) mg/dL Creatinine (0.70-1.50) mg/dL Estimated GFR BUN/Creatinine Ratio (6-20) Glucose (78-110) mg/dL Calculated Osmolality (267-292) mOsm/kg Calcium (8.7-10.7) mg/dL Total Bilirubin (0.3-1.2) mg/dL AST (21-57) IU/L ALT (21-72) IU/L Alkaline Phosphatase (38-126) IU/L Troponin I (< 0.040) ng/mL Total Protein (6.1-8.0) g/dL Albumin (3.5-4.8) g/dL Globulin (2.50-4.10) g/dL Albumin/Globulin Ratio (1.3-2.0) mg/g TSH (0.2700-4.2000) uIU/mL Free T4 (0.93-1.71) ng/dL 07/19/16 07/20/16 07/20/16 Range/Units 12:29 05:48 11:12 WBC (4.8-10.8) 10^3/uL RBC (4.70-6.10) 10^6/uL Hgb (14.0-18.0) g/dL Hct (42.0-52.0) % MCV (80-90) FL MCH (27-31) PG MCHC (33-37) g/dL RDW Std Deviation (39-50) fL RDW Coeff of Sj (11.5-14.5) % Plt Count (140-350) 10*3/uL MPV (7.4-12.2) FL Immature Gran % (Auto) (0-5) % Neut % (Auto) (50-80) % Lymph % (Auto) (10-50) % Parmer % (Auto) (5-15) % Eos % (Auto) (0-8) % Baso % (Auto) (0-1) % Immature Gran # (Auto) 10*3/UL Neut # (Auto) 10*3/UL Lymph # (Auto) 10*3/uL Parmer # (Auto) (0.3-0.8) 10*3/UL Eos # (Auto) 10*3/UL Baso # (Auto) 10*3/UL WBC Morphology Comment (NORM) Plt Morphology Comment (NORM) RBC Morph Comment (NORM) PT 13.2 H (9.7-11.4) secs INR 1.28 (0.00-5.90) N/A D-Dimer (0.00-0.59) mg/L Sodium (135-145) meq/L Potassium (3.8-5.2) meq/L Chloride (98-112) meq/L Carbon Dioxide (23-33) meq/L Anion Gap (5-20) BUN (7-22) mg/dL Creatinine (0.70-1.50) mg/dL Estimated GFR BUN/Creatinine Ratio (6-20) Glucose (78-110) mg/dL Calculated Osmolality (267-292) mOsm/kg Calcium (8.7-10.7) mg/dL Total Bilirubin (0.3-1.2) mg/dL AST (21-57) IU/L ALT (21-72) IU/L Alkaline Phosphatase (38-126) IU/L Troponin I (< 0.040) ng/mL Total Protein (6.1-8.0) g/dL Albumin (3.5-4.8) g/dL Globulin (2.50-4.10) g/dL Albumin/Globulin Ratio (1.3-2.0) mg/g TSH < 0.015 L < 0.015 L (0.2700-4.2000) uIU/mL Free T4 2.78 H (0.93-1.71) ng/dL Patient Problems - Patient Problem List (1) Pulmonary emboli Current Visit: Yes Status: Acute (2) Hyperthyroidism Current Visit: Yes Status: Acute (3) DVT (deep venous thrombosis) Current Visit: Yes Status: Acute Qualifiers: DVT location: lower extremity Affected thrombotic vein of extremity: popliteal Laterality: left Chronicity: acute Qualified Description: Acute deep vein thrombosis (DVT) of popliteal vein of left lower extremity Qualifier Code(s): (I82.432) Acute embolism and thrombosis of left popliteal vein (4) Sacral fracture Current Visit: Yes Status: Chronic Qualifiers: Encounter type: subsequent encounter Zone of sacrum fracture: unspecified portion of sacrum Fracture type: closed Fracture healing: with routine healing Qualified Description: Closed fracture of sacrum with routine healing, unspecified portion of sacrum, subsequent encounter Qualifier Code(s): (S32.10XD) Unspecified fracture of sacrum, subsequent encounter for fracture with routine healing (5) Thyromegaly Current Visit: Yes Status: Acute
[2016-07-20 14:18] LABS: DVVT CONFIRM RATIO 0.8 ratio (0.0 - 1.1)
[2016-07-20 14:57] LABS: FREE T4 (FREE THYROXINE) 2.92 ng/dL (0.93-1.71)
[2016-07-21 10:28] LABS: DRVVT SCREEN RATIO 1.2; SEND OUT APTT 39; SEND OUT INR 1.3; SEND OUT PROTIME 14.5
[2016-07-21 10:29] LABS: SOLUBLE FIBRIN MONOMER <8
[2016-07-21 10:30] LABS: PROTEIN C ACTIVITY 78; PROTEIN S ANTIGEN 104
[2016-07-21 10:31] LABS: APCRV RATIO 3.1
[2016-07-21 11:09] LABS: THYROGLOBULIN AB SCREEN 71 IU/mL (<4.0)
[2016-07-21 13:38] LABS: THYROGLOBULIN INTERPRETATION SEE COMMENTS (()); THYROGLOBULIN TUMOR MARKER 1.5 ng/mL (()); THYROXINE BINDING GLOBULIN 18 mcg/mL (12-26)
[2016-07-23 09:32] LABS: APTT MIX 1:1 34 sec (26 - 36); REPTILASE TIME 18 sec (14 - 23)
[2016-07-23 10:45] LABS: DRVVT MIX RATIO 1.1
[2016-07-23 10:46] LABS: PT MIX 1:1 12.4
[2016-07-23 10:47] LABS: FIBRIONGEN EQUIVALENT UNITS 1.77
[2016-07-23 10:49] LABS: PNTN INTERPRETATION SEE COMMENTS
[2016-07-23 10:50] LABS: PTNT REVIEWED BY SEE COMMENTS
[2016-07-23 11:11] LABS: REVIEWED BY SEE COMMENTS
[2016-07-23 17:09] LABS: THYROID STIMULATING IMMUNO <1.0 TSI index (<=1.3)
== END 2016-07-20 12:51 | disposition home or self-care (01) | DRG 176 ==
LOC: ER 11:56 → MED/SURG 14:14
PROVIDERS: ADMIT Internal Medicine; ATTEND Internal Medicine
DX: I26.99 Other pulmonary embolism without acute cor pulmonale (principal); E07.9 Disorder of thyroid, unspecified; R06.02 Shortness of breath; R07.81 Pleurodynia; E05.90 Thyrotoxicosis, unspecified without thyrotoxic crisis or storm; S32.10XD Unspecified fracture of sacrum, subsequent encounter for fracture with routine healing; E01.0 Iodine-deficiency related diffuse (endemic) goiter
CPT/HCPCS: 36415; 71101; 71275; 76536; 80053; 81240; 83519; 84432; 84439; 84442; 84443; 84445; 84484; 85025; 85300; 85303; 85306; 85307; 85366; 85379; 85384; 85390; 85610; 85611; 85613; 85635; 85670; 85730; 85732; 86376; 86800; 93306; 93970; 94761; 96360; 99285; J1650; J7030

== ENCOUNTER → 2016-07-22 | Outpatient (CLI) | payer OTHER, MEDICARE | LOC: MMPC 09:00 | PROVIDERS: ATTEND Internal Medicine | DX: Z79.01 Long term (current) use of anticoagulants (principal); Z51.81 Encounter for therapeutic drug level monitoring; Z86.711 Personal history of pulmonary embolism; Z86.718 Personal history of other venous thrombosis and embolism | CPT/HCPCS: 85610 ==

== ENCOUNTER → 2016-07-26 | Outpatient (CLI) | payer OTHER, MEDICARE | LOC: MMPC 09:00 | PROVIDERS: ATTEND Internal Medicine | DX: Z79.01 Long term (current) use of anticoagulants (principal); Z51.81 Encounter for therapeutic drug level monitoring; Z86.718 Personal history of other venous thrombosis and embolism | CPT/HCPCS: 85610 ==

== ENCOUNTER → 2016-08-02 | Outpatient (CLI) | payer OTHER, MEDICARE | LOC: MMPC 09:00 | PROVIDERS: ATTEND Internal Medicine | DX: Z79.01 Long term (current) use of anticoagulants (principal); Z51.81 Encounter for therapeutic drug level monitoring; Z86.718 Personal history of other venous thrombosis and embolism | CPT/HCPCS: 85610 ==

== ENCOUNTER → 2016-08-03 | Outpatient (CLI) | payer OTHER, MEDICARE ==
--- NOTE | 2016-08-03 09:39 | DI ---
LUMBAR SPINE SERIES, 08/03/2016 8:44 AM: Clinical History: Stable burst fracture of the first lumbar vertebral body with delayed healing. Previous Exam: 10/28/2014. Comparison is also made with the MRI scan of the lumbar spine from 07/01/20 16. Upright AP and lateral views are submitted. There is a burst fracture of the body of L1 with almost 7 5% loss of height anteriorly. When compared to the MRI scan, there was probably 50-60% loss of height of L1 on 07/01/2016. There is sclerosis present indicating healing. There is displacement of the pos terior and superior margin of the vertebral body into the canal, but this has not changed significant ly from the position on the MRI scan. The remaining vertebral bodies are of normal height. There is d isc space narrowing at T12-L1, and the remaining disc spaces are of normal height. The pedicles at L1 are more sclerotic than the remaining vertebral bodies and there was edema present in the pedicles b ilaterally at L1 on the MRI scan. This would indicate healing. Readin. There has been progressive loss of height anteriorly at the body of L1 since the MRI scan, where the height is now approximately 25% of its original height. Sclerosis is present both in the vertebra l body and in the pedicles indicating healing. There has been no further displacement of the posterio r margin of L1 into the canal since the MRI scan. 2. The remainder of the exam is normal.
== END ==
LOC: MOB RAD 08:46
PROVIDERS: ATTEND Neurological Surgery
DX: S32.011D Stable burst fracture of first lumbar vertebra, subsequent encounter for fracture with routine healing (principal)
CPT/HCPCS: 72100; 99213; G0463

== ENCOUNTER → 2016-08-05 | Outpatient (CLI) | payer OTHER, MEDICARE ==
[2016-08-05 17:42] LABS: FREE T4 (FREE THYROXINE) 2.37 ng/dL (0.93-1.71)
== END ==
LOC: MOB LAB 15:58
PROVIDERS: ATTEND Internal Medicine
DX: E05.90 Thyrotoxicosis, unspecified without thyrotoxic crisis or storm (principal)
CPT/HCPCS: 36415; 84439; 84443

== ENCOUNTER → 2016-08-16 | Outpatient (CLI) | payer OTHER, MEDICARE | LOC: MMPC 09:00 | PROVIDERS: ATTEND Internal Medicine | DX: Z79.01 Long term (current) use of anticoagulants (principal); Z51.81 Encounter for therapeutic drug level monitoring; Z86.718 Personal history of other venous thrombosis and embolism | CPT/HCPCS: 85610 ==

== ENCOUNTER 2016-08-27 14:27 | Emergency (ER) | payer OTHER, MEDICARE ==
--- NOTE | 2016-08-27 14:33 | PDOC ---
Abdomen/Flank HPI - General Chief Complaint: Abdomen Pain Stated Complaint: constipation Date Seen by Provider: 08/27/16 Time Seen by Provider: 14:32 Source: POSITIVE: Patient, Spouse Exam Limitations: POSITIVE: No limitations Nurse's Notes Reviewed & Considered: Yes - History of Present Illness Initial Comments: Is a 81-year-old male who presents to the emergency department with rectal pain. Patient reports that this started earlier today about 10:00. Patient had a recent lumbar fracture and has been treating with pain medication. He has had intermittent constipation. Yesterday his stool is somewhat hard. He did have some mild straining. Today he took a linzess and had increased straining. He did have soft stool that was returned. No hard stool. No constipation. No rectal bleeding. Patient indicates that after the strain he had rectal pain. It has gotten better with time. No relieving factors. Worse with straining. Patient reports it felt similar to prior hemorrhoids. He has had a hemorrhoidectomy years prior. Patient denies any nausea or vomiting. There's been no fevers or chills. Patient denies any abdominal pain. - Patient Home Medications Home Medications: Home Medications Lubiprostone [Amitiza] 1 cap PO BID #40 cap 08/05/16 Polyethylene Glycol 3350 17 gm PO DAILY #30 powd.pack 08/05/16 Warfarin Sodium [Coumadin] 5 mg PO BEDTIME #30 tab 08/11/16 Hydrocodone/Acetaminophen [Hydrocodon-Acetaminophn 10-325] 1 tab PO Q4H PRN #30 tab 08/24/16 Linaclotide [Linzess] 290 mg PO DAILY 08/27/16 Psyllium Husk [Metamucil] 1 tab PO DAILY 08/27/16 Starch [Anusol] 1 each RC DAILY #7 supp.rect 08/27/16 - Patient Allergies Allergies/Adverse Reactions: Allergies Allergy/AdvReac Type Severity Reaction Status Date / Time No Known Drug Allergies Allergy NOT Verified 08/27/16 14:35 APPLICABLE Past Medical History - heen HEENT History: Dentures/Partials, Other (please comment) Additional HEENT History: WEARS GLASSES Cardiovascular History: Arrhythmia Additional Cardiovasular History: 2001 ARRYTHMIA BUT NO PROCEDURE DONE Respiratory History: Sleep Apnea, Pulmonary Embolism Gastrointestinal History: GERD, Other (please comment) Additional Gastrointestinal History: OCCASSIONAL CONSTIPATION FROM NARCOTIC USE FOR BACK INJURY Genitourinary History: Denies History Endocrine History: Denies History Musculoskeletal History: Arthritis, Other (please comment) Prosthesis or Implant: No Additional Musculoskeletal History: RECENT FALL WITH COMPRESSION FRACTURE OF L2 Neurological History: Other (please comment) Additional Neurological History: OCCASIONAL VERTIGO Blood Disorders: Denies History Psychiatric History: Denies History History of Sexually Transmitted Diseases: No Cancer History: Denies History History of MDRO: No History of Other Communicable Diseases: No Alcohol Use: Rarely Substance Use Type: None Previous Surgical History: Yes Type / Date of Surgery: tonsillectomy, hemorrhoidectomy/BILATERAL CATARACT EXT/ RIGHT KNEE SCOPE Anesthesia Reactions: No Malignant Hyperthermia: No Significant Family History: Heart disease, Cancer Past Medical History Reviewed: Reviewed - Changes Made ROS - Limitations ROS Limitations: No Limitations Constitution: DENIES: Fever Cardiovascular: DENIES: Chest Pain Respiratory: DENIES: Denies Resp Symptoms Neurological: DENIES: Denies Neuro Symptoms Gastrointestinal: REPORTS: Other (Positive for rectal pain). DENIES: Abdominal Pain, Nausea, Vomitting Endocrine: DENIES: Denies Symptoms Musculoskeletal: REPORTS: Other (Mild back pain from compression fracture though improving.) Genitourinary: REPORTS: Denies Symptoms ENT: REPORTS: Denies Symptoms Skin: REPORTS: Denies Skin Symptoms Psychiatric: POSITIVE: Denies Psych Symptoms Abdominal/Flank Pain PE - General Appearance General Appearance: POSITIVE: Alert, Cooperative, No Acute Distress - HEENT HEENT: POSITIVE: Head Inspection Nml, Eyes Inspection Nml, Oral/Dental Inspect. Nml - Neck Neck: POSITIVE: Normal Inspection - Respiratory Respiratory: POSITIVE: No Respiratory Distress, Breath Sounds Normal, Chest Non- Tender - Cardiovascular Cardiovascular: POSITIVE: Regular Rate and Rhythm, Heart Sounds Normal - Chest Chest: POSITIVE: Non Tender - Abdomen Abdomen: Soft: (All Quadrants), Normal Bowel Sounds: (All Quadrants), Denies Tenderness: (All Quadrants), No Splenomegaly: (All Quadrants), No Hepatomegaly: (All Quadrants), No Guarding: (All Quadrants), No Rebound: (All Quadrants), No Palpable Pulse: (All Quadrants), No Palpabale Mass: (All Quadrants), No Distention: (All Quadrants), No Rigidity: (All Quadrants) - Genital / Rectal Rectal: POSITIVE: Other (There is no obvious large external anal fissure. There are no thrombosed hemorrhoids. There is a small external hemorrhoid that is minimally tender. On internal examination there is tenderness of the rectal wall without significant evidence of mass. There is no blood. No melena.) - Skin Skin: POSITIVE: Intact, Warm - Extremities Extremity: Non-Tender: (All Extremities), Normal Inspection: (All Extremities) - Psychological Psychiatric: POSITIVE: Affect Appropriate, Mood Appropriate Abdomen Progress - Patient's Progress MDM / ED Course: Silvino is a 81-year-old male who presents to the emergency Department with rectal pain. Vital signs are unremarkable and examination does demonstrate tenderness on rectal examination. His history is suggestive of straining causing pain. I do not identify any obvious external anal fissure though small internal fissure cannot be completely excluded based on his tenderness on examination. There is no evidence of thrombosed external hemorrhoids. And there is been no bleeding. Since abdominal examination is reassuring. There is no evidence to suggest intra-abdominal process causing rectal pain at this time. We will treat him symptomatically for pain related to recent constipation and straining. Patient given strict return precautions for any worsening symptoms to suggest an intra-abdominal process causing his pain. Patient is amenable to this plan. Patient Care Time - Estimated PCT Patient Care Time (In Minutes): 15 Vital Signs - Recent Vital Signs Vital Signs: Vital Signs (Last 8 hours) Temp Pulse Resp BP Pulse Ox 08/27/16 14:41 97.5 F 81 20 148/75 93 - VS Reviewed Vital Signs Reviewed: Yes Discharge Clinical Impression: Rectal pain Condition: Good Prescriptions / Orders: Starch [Anusol] 1 each RC DAILY #7 supp.rect Patient Instructions Given at Discharge: Anal Fissure (ED) Additional Instructions: Thank you for coming to the Emergency Department. Please take miralax daily to avoid any constipation. Please get sitz bath from the pharmacy to help with pain. Use suppository for pain and itching as prescribed. This appears to be pain in the rectum from straining. Please return to the emergency department for development of any additional symptoms such as severe abdominal pain, nausea , vomiting, abdominal swelling or any other concerns. Please follow up with your primary care provider next week for re-evaluation. Follow Up With: JOSE RIVERA [Primary Care Provider] -
[2016-08-27 14:45] VITALS: RESP 20; TEMP 97.5
== END 2016-08-27 15:02 | disposition home or self-care (01) ==
LOC: ER 14:27
DX: K62.89 Other specified diseases of anus and rectum (principal)
CPT/HCPCS: 99282

== ENCOUNTER → 2016-08-30 | Outpatient (CLI) | payer OTHER, MEDICARE ==
--- NOTE | 2016-09-01 14:36 | DI ---
XR L-SPINE 2-3 VW,08/30/2016 9:42 AM: Clinical History: Burst fracture of the first lumbar vertebral body. Previous Exam: August 03, 2016 Findings: AP and lateral views of the lumbar spine are obtained, and demonstrate a stable compression deformity of the left first lumbar vertebral body. There is some stable retropulsion of the posterior fragment s which does not appear to have changed since the prior exam. There is some mild increased sclerosis. A nonobstructive bowel gas pattern is seen. A few phleboliths are seen within the deep pelvis. Impression: Stable burst fracture of the first lumbar vertebral body with some retropulsion of the fragments post eriorly.
== END ==
LOC: RAD 09:34
PROVIDERS: ATTEND Neurological Surgery
DX: S32.011G Stable burst fracture of first lumbar vertebra, subsequent encounter for fracture with delayed healing (principal)
CPT/HCPCS: 72100

== ENCOUNTER → 2016-09-01 | Outpatient (CLI) | payer OTHER, MEDICARE | LOC: MMPC 09:00 | PROVIDERS: ATTEND Physician Assistant | DX: M54.5 Low back pain (principal); M62.830 Muscle spasm of back | CPT/HCPCS: 99212; G0463 ==

== ENCOUNTER → 2016-09-08 | Outpatient (CLI) | payer OTHER, MEDICARE ==
--- NOTE | 2016-09-08 13:45 | DI ---
VENOUS DOPPLER ULTRASOUND OF BOTH LOWER EXTREMITIES, 09/08/2016 11:57 AM: Clinical History: Bilateral leg swelling. Previous Exam: None at this facility. Technique: 2D real-time imaging is supplemented with color Doppler ultrasound. Compression and augmen tation maneuvers were performed. The deep venous system from the groin to the popliteal fossa for both legs is normal. The greater sap henous veins are also normal. Reading: Negative venous Doppler ultrasound of both lower extremities for deep vein thrombosis.
== END ==
LOC: US 11:48
PROVIDERS: ATTEND Physician Assistant
DX: M79.89 Other specified soft tissue disorders (principal); Z86.711 Personal history of pulmonary embolism; Z86.718 Personal history of other venous thrombosis and embolism
CPT/HCPCS: 93970

== ENCOUNTER → 2016-09-10 | Outpatient (CLI) | payer OTHER, MEDICARE ==
[2016-09-10 09:04] LABS: FREE T4 (FREE THYROXINE) 1.95 ng/dL (0.93-1.71)
== END ==
LOC: LAB 07:20
PROVIDERS: ATTEND Student in an Organized Health Care Education/Training Program
DX: E05.90 Thyrotoxicosis, unspecified without thyrotoxic crisis or storm (principal)
CPT/HCPCS: 36415; 84439; 84443; 84480

== ENCOUNTER → 2016-09-30 | Outpatient (CLI) | payer OTHER, MEDICARE | LOC: MMPC 09:00 | PROVIDERS: ATTEND Internal Medicine | DX: Z79.01 Long term (current) use of anticoagulants (principal); Z51.81 Encounter for therapeutic drug level monitoring; Z86.711 Personal history of pulmonary embolism; Z86.718 Personal history of other venous thrombosis and embolism | CPT/HCPCS: 85610 ==

== ENCOUNTER → 2016-10-01 | Outpatient (CLI) | payer OTHER, MEDICARE ==
--- NOTE | 2016-10-04 09:09 | DI ---
XR L-SPINE 2-3 VW,10/01/2016 11:45 AM: Clinical History: Burst fracture of the first lumbar vertebra with delayed healing Previous Exam: August 30, 2016 Findings: AP and lateral views of the lumbar spine are obtained, and demonstrate some stable dextroscoliosis of the thoracic lumbar junction. There is also a stable burst fracture of the first lumbar vertebral body with stable mild retropulsio n of fragments. There has been no interval loss of vertebral body height. A nonobstructive bowel gas pattern is seen and no pathologic calcifications are noted. Impression: No significant change from the prior exam.
== END ==
LOC: RAD 11:41
PROVIDERS: ATTEND Physician Assistant
DX: S32.011G Stable burst fracture of first lumbar vertebra, subsequent encounter for fracture with delayed healing (principal)
CPT/HCPCS: 72100

== ENCOUNTER → 2016-10-06 | Outpatient (CLI) | payer OTHER, MEDICARE | LOC: MMPC 10:00 | PROVIDERS: ATTEND Orthopaedic Surgery | DX: S32.011D Stable burst fracture of first lumbar vertebra, subsequent encounter for fracture with routine healing (principal); M47.816 Spondylosis without myelopathy or radiculopathy, lumbar region | CPT/HCPCS: 99213; G0463 ==

== ENCOUNTER → 2016-10-27 | Outpatient (CLI) | payer OTHER, MEDICARE | LOC: MMPC 11:11 | PROVIDERS: ATTEND Internal Medicine | DX: S32.011G Stable burst fracture of first lumbar vertebra, subsequent encounter for fracture with delayed healing (principal); E05.90 Thyrotoxicosis, unspecified without thyrotoxic crisis or storm | CPT/HCPCS: 99214; G0463 ==

== ENCOUNTER → 2016-10-28 | Outpatient (CLI) | payer OTHER, MEDICARE | LOC: MMPC 10:00 | PROVIDERS: ATTEND Neurological Surgery | DX: M54.5 Low back pain (principal); S32.011D Stable burst fracture of first lumbar vertebra, subsequent encounter for fracture with routine healing; M47.816 Spondylosis without myelopathy or radiculopathy, lumbar region; Z79.01 Long term (current) use of anticoagulants; Z51.81 Encounter for therapeutic drug level monitoring; Z86.718 Personal history of other venous thrombosis and embolism | CPT/HCPCS: 85610; 99213; G0463 ==

== ENCOUNTER → 2016-11-02 | Outpatient (CLI) | payer OTHER, MEDICARE ==
--- NOTE | 2016-11-02 10:29 | DI ---
MRI LUMBAR SPINE SCAN WITHOUT IV CONTRAST, 11/02/2016 8:47 AM: Clinical History: Followup of a closed, stable burst fracture of L1 with delayed healing. Previous Exam: 07/01/2016. Technique: Sagittal and axial T2 weighted; sagittal T1 weighted and T2 STIR; and axial PD. There is a compression fracture of L1 with loss of height of 50% and projection of the superior and p osterior margin of the vertebral body into the spinal canal. On the STIR sequence, there is only mini mal increased signal intensity along the superior endplate region. This represents an improvement fro m the previous exam with respect to edema in the L1 vertebral body. The remaining vertebral bodies ar e of normal height and signal pattern. There is moderate disc space narrowing at L2-3 and L4-5. The r emaining disc spaces are of normal height and all disc spaces show desiccation change. The cord termi nates at T12 and the conus medullaris is normal. The T10-11 and T11-12 disc spaces are normal. There is minimal bulging of the disc at T11-12, with projection of the superior and posterior aspect of the L1 vertebral body into the canal but without canal or neural foraminal stenosis. There is a bulging but not herniated disc without canal or neural foraminal stenosis at L1-2. L2-3 disc spaces normal. L 3-4 through L5-S1 disc spaces all show bulging but not herniated discs without canal or neural forami nal stenosis. The L3-4 through L5-S1 apophyseal joints show degenerative arthritic change. Readin. There is only minimal increased signal intensity in the L1 vertebral body on the sagittal STIR se quence. There has been no progressive loss of height since the previous exam. These changes indicate the burst fracture is almost completely healed. There is no canal stenosis or neural foraminal stenos is is secondary to bulging discs or the posterior displacement of the body of L1 either at T12-L1 or L1-2. 2. There are bulging but not herniated discs without canal or neural foraminal stenosis from L3-4 th rough L5-S1. 3. The T10-11, T11-12, and L2-3 disc spaces are normal.
== END ==
LOC: MRI 10-30 12:09
PROVIDERS: ATTEND Neurological Surgery
DX: S32.011G Stable burst fracture of first lumbar vertebra, subsequent encounter for fracture with delayed healing (principal); M47.817 Spondylosis without myelopathy or radiculopathy, lumbosacral region
CPT/HCPCS: 72148

== ENCOUNTER → 2016-11-11 | Outpatient (CLI) | payer OTHER, MEDICARE | LOC: MMPC 09:00 | PROVIDERS: ATTEND Internal Medicine | DX: Z79.01 Long term (current) use of anticoagulants (principal); Z51.81 Encounter for therapeutic drug level monitoring; Z86.718 Personal history of other venous thrombosis and embolism; Z86.711 Personal history of pulmonary embolism | CPT/HCPCS: 85610 ==

== ENCOUNTER → 2016-11-17 | Outpatient (CLI) | payer OTHER, MEDICARE | LOC: MMPC 09:00 | PROVIDERS: ATTEND Internal Medicine | DX: Z79.01 Long term (current) use of anticoagulants (principal); Z51.81 Encounter for therapeutic drug level monitoring; Z86.718 Personal history of other venous thrombosis and embolism; Z86.711 Personal history of pulmonary embolism | CPT/HCPCS: 85610 ==

== ENCOUNTER 2016-11-18 07:57 | Day surgery (SDC) | payer OTHER, MEDICARE ==
[2016-11-18] MEDS ORDERED: TRIAMCINOLONE ACETONIDE 40 MG/1 ML IM ONE (08:00)
[2016-11-18] MEDS ORDERED: Iopamidol Inj 61% 50 ML VIAL IV ONE (08:00)
[2016-11-18] MEDS ORDERED: BUPivacaine Inj 0.25% PF - 10ml vial IV ONE (08:00)
[2016-11-18 08:14] VITALS: RESP 18
--- NOTE | 2016-11-18 09:04 | GEN.OPNOTE ---
Facet Injection Procedure: Facet Injection with Local Anesthetic and Steriod -: Consent: Rationale for procedure, nature of procedure, possible risks and benefits were discussed with the patient. Risks including allergic reaction to medications, known effects of steroid medications including transient elevations in blood sugar with aggravation of pre-existing diabetes and remote risk of aseptic necrosis of the hip. Infection or bleeding with potential risk of neurologic injury with weakness, paralysis or were all reviewed with the patient who wished to proceed. Anesthesia, sedation: No intravenous access or sedation was used. Physiologic monitoring of pulse and oxygen saturation was utilized. Procedure: The patient was placed prone on the operating room table, prepped with Chloroprep and sterilely draped. The skin was anesthetized with 1% Buffered Xylocaine. Under fluoroscopic control a 22-gauge needle was advanced [ L45] facet joint on the [right]. Omnipaque was injected under real-time fluoroscopy demonstrating an facet arthrogram. Following this [1] ml of a mixture of kenalog(40mg/ml) and Ropivacaine was injected. AP and lateral images of the final needle placement was obtained. The needle was removed and the patient returned to the post procedure recovery room where they were monitored for any side effects. The same was done on the left. Pain assessment: Preprocedure pain []/10, post procedure pain []/10. Discharge instructions: Patient was given a pain log to be filled out and returned. A delayed response to the steroids of 2-5 days was discussed.
[2016-11-18 09:14] VITALS: TEMP 98
== END 2016-11-18 09:08 | disposition home or self-care (01) ==
LOC: SDSC 07:57
PROVIDERS: ATTEND Pain Medicine Interventional Pain Medicine
DX: M47.816 Spondylosis without myelopathy or radiculopathy, lumbar region (principal); S32.011A Stable burst fracture of first lumbar vertebra, initial encounter for closed fracture
CPT/HCPCS: 76000

== ENCOUNTER → 2016-11-23 | Outpatient (CLI) | payer OTHER, MEDICARE | LOC: MMPC 10:00 | PROVIDERS: ATTEND Physician Assistant | DX: M17.0 Bilateral primary osteoarthritis of knee (principal) | CPT/HCPCS: 20610 ×2; G0463; J0702 ==

== ENCOUNTER → 2016-12-20 | Outpatient (CLI) | payer OTHER, MEDICARE | LOC: MMPC 09:00 | PROVIDERS: ATTEND Nurse Practitioner | DX: Z79.01 Long term (current) use of anticoagulants (principal); Z51.81 Encounter for therapeutic drug level monitoring; Z86.718 Personal history of other venous thrombosis and embolism; Z86.711 Personal history of pulmonary embolism | CPT/HCPCS: 85610 ==

== ENCOUNTER → 2017-01-24 | Outpatient (CLI) | payer OTHER, MEDICARE ==
[2017-01-24 08:40] LABS: FREE T4 (FREE THYROXINE) 1.05 ng/dL (0.93-1.71)
== END ==
LOC: LAB 07:28
PROVIDERS: ATTEND Internal Medicine
DX: E05.00 Thyrotoxicosis with diffuse goiter without thyrotoxic crisis or storm (principal)
CPT/HCPCS: 36415; 84439; 84443

== ENCOUNTER → 2017-01-26 | Outpatient (CLI) | payer OTHER, MEDICARE | LOC: MMPC 11:11 | PROVIDERS: ATTEND Internal Medicine | DX: M47.816 Spondylosis without myelopathy or radiculopathy, lumbar region (principal); Z86.711 Personal history of pulmonary embolism; E05.90 Thyrotoxicosis, unspecified without thyrotoxic crisis or storm | CPT/HCPCS: 99214; G0463 ==

== ENCOUNTER 2017-02-09 07:05 | Day surgery (SDC) | payer OTHER, MEDICARE ==
[~2017-02-09 07:05] MED LIST: BUPivacaine Inj 0.25% PF - 10ml vial IV ONE; DEXAMETHASONE PF 10 MG/1 ML VIAL IM ONE; Iopamidol Inj 61% 50 ML VIAL INTRATHEC ONE; TRIAMCINOLONE ACETONIDE 40 MG/1 ML IAC ONE
[2017-02-09 07:23] VITALS: RESP 18
--- NOTE | 2017-02-09 07:58 | GEN.OPNOTE ---
Interlaminar DANISHA Procedure: Interlaminar Epidural Steriod Injection Procedure Code - Neurosurgery: 18155 : Lumbar Epidural Injection (Single) -: Consent: Rationale for procedure, nature of procedure, possible risks and benefits were discussed with the patient. Risks including allergic reaction to medications, known effects of steroid medications including transient elevation in blood sugar with aggravation of pre-existing diabetes and remote risk of aseptic necrosis of the hip. Pain at the injection site, inadvertent dural puncture with resultant in CSF leak and headache possibly requiring further treatment. Infection or bleeding with potential risk of neurologic injury with weakness, paralysis or were all reviewed with the patient who wished to proceed. Anesthesia, sedation: No intravenous access or sedation was used. Physiologic monitoring of pulse and oxygen saturation was utilized. Procedure: The patient was placed prone on the operating room table, prepped with Chloroprep and sterilely draped. The skin was anesthetized with 1% Buffered Xylocaine. Under fluoroscopic control a 22-gauge Touhy needle was advanced into the epidural space at the L45 level. Using loss-of- resistance technique the epidural space was identified. Omnipaque was injected under real- time fluoroscopy demonstrating an epidurogram. Following this 5 ml of a mixture of triamcinolone(40mg/ml), dexamethasone (10mg/ml) and 1% lidocaine was injected epidurally. AP and lateral images of the final needle placement were obtained. The needle was removed and the patient returned to the post procedure recovery room where they were monitored for any side effects. Pain assessment: Preprocedure pain []/10, post procedure pain []/10. Discharge instructions: Patient was given a pain log to be filled out and returned. A delayed response to the steroids of 2-5 days was discussed.
[2017-02-09 08:07] VITALS: TEMP 97.5
== END 2017-02-09 08:00 | disposition home or self-care (01) ==
LOC: SDSC 07:05
PROVIDERS: ATTEND Pain Medicine Interventional Pain Medicine
DX: M47.816 Spondylosis without myelopathy or radiculopathy, lumbar region (principal); S32.001A Stable burst fracture of unspecified lumbar vertebra, initial encounter for closed fracture
CPT/HCPCS: 62322; 76000; J1100; J3301; S0020

== ENCOUNTER → 2017-02-23 | Outpatient (CLI) | payer OTHER, MEDICARE | LOC: MMPC 10:00 | PROVIDERS: ATTEND Physician Assistant | DX: M17.0 Bilateral primary osteoarthritis of knee (principal); M47.816 Spondylosis without myelopathy or radiculopathy, lumbar region; S32.010D Wedge compression fracture of first lumbar vertebra, subsequent encounter for fracture with routine healing | CPT/HCPCS: 20610 ×2; 99212; G0463; J0702; J7325 ==

== ENCOUNTER 2017-09-06 18:38 | Inpatient (IN) ==
[2017-09-06] MEDS ORDERED: ONDANSETRON 4 MG/2 ML VIAL IVP ONE (18:51)
[2017-09-06] MEDS ORDERED: NORMAL SALINE 10 ML SYRINGE FLUSH IVP PRN ×2 (18:51→23:28)
[2017-09-06] MEDS: Sodium Chloride 0.9% 1,000 ML PRIMARY IV ONE ×2 (19:00→19:24)
[2017-09-06] MEDS ORDERED: PANTOPRAZOLE IV 40 MG VIAL ONE (19:03)
[2017-09-06] MEDS ORDERED: MORPHINE SULFATE 4 MG/1 ML ONE (19:04)
[2017-09-06] MEDS ORDERED: Pantoprazole Inj 40 MG in Normal Saline Flush 10 ML IVP ONE (19:11)
[2017-09-06] MEDS ORDERED: MORPHINE SULFATE 4 MG/1 ML IVP ONE (19:11)
[2017-09-06 19:13] LABS: BASOPHILS # (AUTO) 0.01 10*3/UL; BASOPHILS % (AUTO) 0.1 % (0-1); EOSINOPHILS # (AUTO) 0.08 10*3/UL; EOSINOPHILS % (AUTO) 0.5 % (0-8); Hematocrit [HCT] 45.6 % (42.0-52.0); LYMPHOCYTES # (AUTO) 0.99 10*3/uL; MEAN CORPUSCULAR HEMOGLOBIN 30.8 PG (27-31); MEAN CORPUSCULAR HGB CONC 35.1 g/dL (33-37); MEAN CORPUSCULAR VOLUME 87.9 FL (80-90); MEAN PLATELET VOLUME 10.1 FL (7.4-12.2); MONOCYTES # (AUTO) 1.27 10*3/UL (0.3-0.8); NEUTROPHILS # (AUTO) 13.48 10*3/UL; NEUTROPHILS % (AUTO) 84.9 % (50-80); RED BLOOD COUNT 5.19 10^6/uL (4.70-6.10)
[2017-09-06 19:21] LABS: PLATELET MORPHOLOGY COMMENT NORMAL MORPHOLOGY (NORM); RBC MORPHOLOGY COMMENT NORMAL MORPHOLOGY (NORM); WBC MORPHOLOGY COMMENT NORMAL MORPHOLOGY (NORM)
[2017-09-06] MEDS ORDERED: Sodium Chloride 0.9% 1,000 ML PRIMARY IV ONE (19:24)
[2017-09-06 19:25] LABS: BLOOD UREA NITROGEN 32 mg/dL (7-22); BUN/CREATININE RATIO 29.09 (6-20); LIPASE 32 IU/L (23-300); SERUM ALBUMIN 3.6 g/dL (3.5-4.8)
--- NOTE | 2017-09-06 20:51 | DI ---
CT ABDOMEN SCAN WITH IV CONTRAST, 09/06/2017 7:24 PM : Clinical History: Abdominal pain. Vomiting. Elevated white count. Previous Exam: 05/30/2016. Scans are performed from the lower lung bases through the liver and kidneys with IV contrast. 75 ml o f Isovue 300 was injected IV. No oral or rectal contrast was ordered. The lung bases are clear. There may be a small pericardial effusion. Only the most inferior aspect of the heart is visualized. There are multiple small cysts in the left lobe of the liver that are uncha nged from the previous exam. The gallbladder is grossly normal. There is no abnormality of the spleen , pancreas, and adrenal glands. Both kidneys are normal in size, shape, position and contour. There i s no hydronephrosis or hydroureter. No renal or ureteral calculi are present. No perinephric fluid co llections are identified. There are no abnormal retrocrural or periaortic nodes. No ascites is presen t. READIN. Normal CT abdomen scan. 2. There may be a small pericardial effusion. CT PELVIS SCAN WITH IV CONTRAST, 09/06/2017 7:24 PM: Clinical History: See above. Previous Exam: 05/30/2016. Scans are performed from just superior to the umbilicus to the symphysis pubis with IV contrast. This is the same bolus of contrast used for the CT scans of the abdomen. Scans through the lower abdomen and pelvis show no masses or abnormal fluid collections. There is no adenopathy. The appendix is not identified with certainty but there is no inflammatory mass in the ri t lower quadrant. The small bowel, terminal ileum, and ileocecal valve are normal. The cecum is [place] led with liquid stool and is moderately well distended. There is abnormal thickening of the cecal muc [place] extending at least midway to the hepatic flexure. There is enhancement of the mucosa as well as e vidence of contrast in the arteries and veins related to the cecum. The remainder of the colon is nor mal. There are no hernias. READIN. There is thickening of the cecal wall with edema. The cecum does show enhancement making ischemic disease less likely. This may represent typhlitis although this typically is associated with immunos uppressed patients. C. Difficile colitis is a possibility as well. There is no periserosal inflammato ry/infiltrative change associated with the cecum. The appendix is not visualized and may be surgicall y absent. 2. The remainder of the examination is normal.
[2017-09-06 21:24] LABS: BILIRUBIN,URINE NEGATIVE (NEG); CLARITY,URINE CLEAR (CLEAR); COLOR,URINE YELLOW (Y); GLUCOSE, URINE (UA) NEGATIVE (NEG); OCCULT BLOOD,URINE SMALL (NEG); PROTEIN,URINE 100 mg/dl (NEG); UROBILINOGEN,URINE 0.2 EU/dL (0.2)
[2017-09-06 21:27] LABS: RBC,URINE 0-2 /hpf; SQUAMOUS EPITHELIAL CELL,UR FEW; URINE SAMPLE TYPE VOIDED SPECIMEN
[2017-09-06] MEDS ORDERED: Ertapenem Inj 1 GM in Sodium Chloride 0.9% 100 ML IV ONE (22:37)
--- NOTE | 2017-09-06 22:48 | CONSULT ---
Consult Note - Consult Consult Date: 09/06/17 Reason for Consult: PreOp Consulation : General Surgery Requesting Physician: Dr. Miramontes Primary Care Provider: Russ Cardoso MD - History of Present Illness History of Present Illness: Patient is an 82-year-old male, who is known to me, whom I am asked to see for abdominal pain, nausea, vomiting, and diarrhea. The patient is known to me as in June 2017 we did an upper and lower endoscopy. His upper endoscopy showed changes of reflux. His colonoscopy showed polyps which were removed from the cecum, ascending colon, and transverse colon. These were all tubular adenomas. He has a history of prior colon polyps. There is a family history of colon cancer. The patient's has recently gotten over influenza B. The patient reports a 4-5 day history of waxing and waning abdominal pain which has not progressed. He gives a 2 to three-day history of nausea and vomiting. He gives a 2 day history of diarrhea. The diarrhea finally stop this afternoon. He has not had any bright red blood per rectum. He has not been eating or drinking. He reports he is afraid to eat. He has not had any fever but has had some chills. The pain hasn't really progressed. There is tenderness when he pushes on the right lower abdomen. He has never had an appendectomy. He has never had an abdominal pain like this in the past. His main complaint at this time is actually of back pain. Yesterday he did have some sore throat and a cough. That has somewhat resolved as well. The patient presented to the emergency room. He tested positive for influenza B. His C-reactive protein was elevated at 18. His white count is elevated at 15.8. He had a CT scan of his abdomen and pelvis done. Findings are mostly remarkable for some thickening of the cecal wall with edema. There is enhancement which makes ischemia unlikely. There is no periserosal inflammatory or infiltrative changes associated with the cecum. The appendix is not seen. Again there is no pericecal inflammatory changes. There is no free fluid and no free air. Review of Systems - Gastrointestinal Gastrointestinal / Abdominal: REPORTS: Nausea, Vomiting, Diarrhea, Abdominal Pain, Poor Appetite, Heartburn, See HPI Past Medical History Medical History: Paroxysmal atrial fibrillation. Gastroesophageal reflux. History of colon polyps. Obstructive sleep apnea. Reactive airway disease. History of DVT/PE. Hyperthyroid. Thyroid mass. Vertigo. Benign prostatic hypertrophy. Family history of colon cancer. Chronic opiate dependent back pain. Bilateral knee osteoarthritis. Admission in May after a fall that resulted in L1 fracture and sacral fracture. He also had the laceration under his left axilla. Surgical History: 1. Bilateral cataracts. 2. Hemorrhoid repair. 3. Colonoscopy in 2008 and in June 2017. 4. Esophagogastroduodenoscopy in June 2017. Pertinent Family History: Significant for colon cancer. His mother of a heart attack many years ago. Past Social History: , has 3 kids described as healthy, does not smoke, drinks occasionally. Tobacco Use: Never Smoker In the Past 12 Months, Have Used or Abuse Any of the Following Substance: None Alcohol Use: Occasionally Medication / Allergies Home Medications: Home Medications 3 Medication Instructions Recorded Confirmed Type methimazole 5 mg tablet 5 mg PO QDAY tab 05/10/17 09/06/17 History hydrocodone 10 mg-acetaminophen 1 tab PO Q4-6H PRN #90 tab 07/07/17 09/06/17 Rx 325 mg tablet pantoprazole 40 mg tablet,delayed 40 mg PO QDAY #90 tab 07/15/17 09/06/17 Rx release Allergies/Adverse Reactions: Allergies 3 Allergy/AdvReac Type Severity Reaction Status Date / Time No Known Drug Allergies Allergy NOT Verified 09/06/17 18:40 APPLICABLE Results - Labs CBC and BMP: 09/06/17 19:09 09/06/17 19:09 - Imaging Status: Image Reviewed by Me, Report Reviewed by Me Exam - Vitals Vital Signs: Vital Signs Height 5 ft 9 in Weight 195 lb - General General Appearance: Cooperative, Mild Distress - Respiratory Respiratory Exam: POSITIVE: Clear to Auscultation - Bilaterally, Breathing Non Labored - Cardiovascular Cardiovascular Exam: POSITIVE: RRR, No Murmur - GI/Abdominal GI/Abdominal Exam: POSITIVE: Normal Bowel Sounds, Non Distended, Soft, Guarding (Right lower quadrant), No Masses Additional GI/Abdominal Exam Details: Abdomen is protuberant. It is soft. There is some focal right lower quadrant tenderness with deep palpation. There is no rebound. There is voluntary guarding. There is no mass. - Rectal Rectal Exam: POSITIVE: Deferred - Neurological Neurological Exam: POSITIVE: Alert, Oriented x 3 - Psychiatric Psychiatric Exam: POSITIVE: Normal Affect, Normal Mood Assessment and Plan - Patient Problems (1) Right lower quadrant abdominal pain Current Visit: Yes Status: Acute Priority: High Onset Date: ~09/02/17 Comment: The abdominal pain is waxing and waning. It is nonprogressive. CT scan shows thickening of the cecal wall with edema. No evidence of ischemia. No surrounding inflammatory changes, free air, or free fluid. Etiology unclear. The appendix is not visualized. Possible right-sided diverticulitis versus enteritis of this region. Patient does not have a surgical abdomen or indications for acute surgical intervention. He has had a recent colonoscopy just 2 months ago. He did have some right colonic polyps removed. I think he is dehydrated which may account for his elevated white count. He needs aggressive hydration. I have recommended a be given a gram of Invanz. We will follow his clinical course and labs. He will be admitted to the hospitalist service and I will follow him in consultation. If he continues to improve nothing further needs to be done. If he shows signs of deterioration will need to give some consideration for a follow-up colonoscopy or CT scan with IV and rectal contrast. If his condition deteriorates rapidly may need operative intervention. Again at this time there is no indication for operative intervention. Code(s): R10.31 - Right lower quadrant pain (2) Diarrhea Current Visit: Yes Status: Acute Priority: Medium Onset Date: ~09/04/17 Comment: Resolved earlier today. If he has more diarrhea would recommend a C. difficile and possible further stool studies. Code(s): R19.7 - Diarrhea, unspecified (3) Nausea and vomiting Current Visit: Yes Status: Acute Priority: Medium Onset Date: ~09/03/17 Comment: Treated with hydration and appropriate medications. Reasonable to give him clear liquids if he can keep them down. Would not advance his diet and tolerating is reevaluated in the morning. Code(s): R11.2 - Nausea with vomiting, unspecified
--- NOTE | 2017-09-06 23:15 | PDOC ---
General Adult HPI - General Chief Complaint: Nausea / Vomiting / Diarrhea Stated Complaint: nausea, vomiting and diarrhea Date Seen by Provider: 09/06/17 Time Seen by Provider: 18:45 Source: POSITIVE: Patient Exam Limitations: POSITIVE: No limitations Nurse's Notes Reviewed & Considered: Yes - History of Present Illness Initial Comment: The patient is an 82-year-old male who presents to the emergency department with complaints of nausea vomiting, diarrhea and abdominal pain. He states that he has had some vague abdominal pain for the last for 5 days. He started to develop some increased nausea and vomiting yesterday. This has intensified today. He has had diarrhea yesterday and today as well. He also started to develop some mild congestion as well as cough yesterday and today. His was diagnosed with influenza be about a week ago and has been sick all week with influenza B. The patient states that today he's been unable to keep anything down. He also reports significant low back pain which has been ongoing for the past via her 6 months. He does see a neurosurgeon in [place] and was scheduled to have some injections tomorrow. He denies any current chest pain or increased shortness of breath. He does have a mild headache. He denies numbness or weakness in his arms or legs. He denies urinary symptoms. Have you received a tetanus shot in the past 10 years?: Unknown - Patient Home Medications Home Medications: Home Medications methimazole 5 mg tablet 5 mg PO QDAY tab 05/10/17 hydrocodone 10 mg-acetaminophen 325 mg tablet 1 tab PO Q4-6H PRN #90 tab pantoprazole 40 mg tablet,delayed release 40 mg PO QDAY #90 tab 07/15/17 - Patient Allergies Allergies/Adverse Reactions: Allergies 3 Allergy/AdvReac Type Severity Reaction Status Date / Time No Known Drug Allergies Allergy NOT Verified 09/06/17 18:40 APPLICABLE Past Medical History - heen HEENT History: Dentures/Partials, Other (please comment) Additional HEENT History: WEARS GLASSES,VERTIGO Cardiovascular History: Arrhythmia Additional Cardiovasular History: 2001 ARRYTHMIA BUT NO PROCEDURE DONE. CHRONIC A-FIB,COR PULMONALE. HYPOKALEMIA Respiratory History: Pneumonia, Sleep Apnea, Pulmonary Embolism, Other (please comment) Additional Respiratory History: REACTIVE AIRWAYS DYSFUNCTION SYNDROME. RANJEET Gastrointestinal History: GERD, Other (please comment) Additional Gastrointestinal History: CONSTIPATION FROM NARCOTIC USE FOR BACK INJURY. HX COLON POLYP Genitourinary History: Denies History Additional Genitourinary History: CHRONIC URINARY RETENTION. BPH Endocrine History: Hyperthyroidism, Other (please comment) Additional Endocrine History: FATIGUE. THYROID MASS,THYROMEGALY Musculoskeletal History: Arthritis, Osteoarthritis, Other (please comment) Prosthesis or Implant: No Additional Musculoskeletal History: RECENT FALL WITH COMPRESSION FRACTURE OF L- 1 L-2. SPONDOLYSIS LUMBAR REGION, SACRAL FRACTURE. DVT. OBESITY. PELVIC HEMATOMA Neurological History: Other (please comment) Additional Neurological History: OCCASIONAL VERTIGO Blood Disorders: Clotting Disorders Psychiatric History: PTSD History of Sexually Transmitted Diseases: No Cancer History: Denies History In Past Year Been Physically Harmed or Verbally Threatened: No History of MDRO: No History of Other Communicable Diseases: No Tobacco Use: Never Smoker Alcohol Use: Rarely In the Past 12 Months, Have Used or Abuse Any Substance: None Previous Surgical History: Yes Type / Date of Surgery: tonsillectomy, hemorrhoidectomy/BILATERAL CATARACT EXT/ RIGHT KNEE SCOPE,COLONOSCOPY/Eye corrective surgery L Anesthesia Reactions: No Malignant Hyperthermia: No Significant Family History: Heart disease, Cancer Past Medical History Reviewed: Reviewed - No Changes ROS - Limitations ROS Limitations: No Limitations Constitution: REPORTS: Chills Cardiovascular: DENIES: Chest Pain Respiratory: REPORTS: Cough Non Productive. DENIES: Shortness Of Breath Neurological: REPORTS: Headache (Mild). DENIES: Numbness, Weakness Gastrointestinal: REPORTS: Abdominal Pain, Nausea, Vomitting, Diarrhea. DENIES : Black Stools, Bloody Stools Musculoskeletal: REPORTS: Denies MS Symptoms Genitourinary: DENIES: Dysuria, Hematuria Eyes: REPORTS: Denies Symptoms ENT: REPORTS: Congestion, Sore Throat Skin: DENIES: Rash General Adult Exam - General Appearance General Appearance: POSITIVE: Alert, Cooperative, No Acute Distress - HEENT HEENT: POSITIVE: Head Inspection Nml, Eyes Inspection Nml, Ears Inspection Nml, Pharynx Inspect. Nml, Dry Mucous Membranes - Neck Neck: POSITIVE: Normal Inspection. NEGATIVE: Lymphadenopathy - Respiratory Respiratory: POSITIVE: No Respiratory Distress, Breath Sounds Normal - Cardiovascular Cardiovascular: POSITIVE: Regular Rate & Rhythm, No Murmur - Abdomen Abdomen: Soft: (All Quadrants), Normal Bowel Sounds: (All Quadrants) Additional Abdominal Details: On arrival the patient had generalized abdominal tenderness without guarding or rebound tenderness, bowel sounds were present, no palpable mass - Skin Skin: POSITIVE: Normal Color, No Rash - Extremities Extremity: Normal ROM: (All Extremities), Normal Inspection: (All Extremities) - Neurological / Psychological Neurological: POSITIVE: Oriented X3, Motor Normal, Sensation Normal, Other (No focal neurologic deficit) General Adult Progress - Results Reviewed by me Xrays/CTs/US Reviewed by me: Yes Discussed with Radiologist: Yes Radiology Findings: CT of the abdomen and pelvis reveals thickening of the cecal wall, the appendix is not visualized, there is no associated inflammatory change, no other acute findings per radiologist. Lab Results Reviewed by Me: Yes (influenza B is positive) CBC and BMP: 09/06/17 19:09 09/06/17 19:09 - Patient's Progress MDM / ED Course: On arrival the patient appeared to be quite dehydrated. He was also having significant generalized abdominal pain. An IV was established and he received a 1 L bolus of normal saline as well as Zofran 4 mg IV, morphine 4 mg IV and Protonix 40 mg IV. After administration of morphine his oxygen saturations dropped and he was placed on O2 per nasal cannula. His influenza screen was positive for influenza B. Blood work revealed an elevated white count at 15.8 as well as an elevated CRP at 18. Other blood work was essentially unremarkable. CT scan of the abdomen and pelvis was ordered secondary to the abdominal pain as well as elevated WBC and CRP. This shows some thickened cecal wall of unknown significance. After CT the patient's repeat abdominal exam did reveal more focal tenderness in the right lower quadrant with some localized rebound tenderness, no guarding or palpable mass. The patient was discussed with Dr. Brambila for general surgical consultation and he did evaluate the patient in the emergency department as well. He did not feel that the patient had a surgical abdomen. He recommended treatment with IV antibiotics and stool studies. I subsequently spoke with Dr. Butler and he is agreed to admit the patient for further treatment. Blood cultures and lactate were drawn and he was started on Invanz 1 g IV. The patient had not yet provided stool for the stool studies that have been ordered. These findings and recommendations were discussed with the patient and his and they're in agreement with current plan. - Consult Counseled: POSITIVE: Patient, Family, RE: Lab Results, RE: Radiology Results, RE : DX Patient Care Time - Estimated PCT Patient Care Time (In Minutes): 45 Vital Signs - VS Reviewed Vital Signs Reviewed: Yes (written nursing documentation reviewed) Discharge Clinical Impression: Abdominal pain, Dehydration, Influenza B Discharge Disposition: Admit to Inpatient Condition: Fair Date Decision to Admit to Inpatient: 09/06/17 Time Decision to Admit to Inpatient: 22:30
[2017-09-06] MEDS ORDERED: ACETAMINOPHEN 325 MG TABLET PO PRN (23:28)
[2017-09-06] MEDS ORDERED: CALCIUM CARBONATE 500 MG (TUMS) CHEWABLE TABLET PO PRN (23:28)
[2017-09-06] MEDS ORDERED: LIDOCAINE W/ SODIUM BICARB 0.5 ML SYR SUBD PRN (23:28)
[2017-09-06] MEDS ORDERED: ONDANSETRON 4 MG/2 ML VIAL IVP PRN (23:28)
--- NOTE | 2017-09-06 23:28 | PDOC ---
HPI - History of Present Illness Date of Service: 09/06/17 Time of Service: 23:25 Chief Complaint: Nausea vomiting diarrhea with abdominal pain of 3-4 days duration History of Present Illness: This is an 82 years old male with medical history significant for history of hypothyroidism, history of previous PE, history of colonic polyp and chronic pain syndrome who presented to the hospital with history of nausea vomiting and abdominal pain with diarrhea symptoms started 3 or 4 days ago. He said he is not eating much the last few days, he was having multiple bowel movements last time was 3 PM today. There was no blood. Has been nauseated the last few days and he did vomit small amount today. He is feeling also pain in the belly more towards the lower right and mid abdomen. Pain is variable in intensity. Because of all the symptoms he came into the ER. His recently was diagnosed with influenza B, evaluation in the ER revealed elevated white count, he was positive for the influenza B in addition he had a CT of the abdomen which showed edema and thickening of the cecum. Dr. Brambila was consulted who suggested Invanz and admission. Patient did receive some IV pain medication by the time I came in to see him his pain was gone. He feels better than when he came in. He did not have fever. He denied sore throat, denied runny nose. Past Medical History Medical History: 1. Bilateral knee osteoarthritis. 2. Admission in 05/2016 after a fall that resulted in L1 fracture and sacral fracture. He also had the laceration under his left axilla. 3. History of PE 4. Hyperthyroidism on treatment. Surgical History: 1. Bilateral cataracts. 2. Hemorrhoid repair. 3. Colonoscopy in 2008 and in June 2017. 4. Esophagogastroduodenoscopy in June 2017. Pertinent Family History: Significant for colon cancer. His mother of a heart attack many years ago. Past Social History: , has 3 kids described as healthy, does not smoke, drinks occasionally. Tobacco Use: Never Smoker In the Past 12 Months, Have Used or Abuse Any of the Following Substance: None Alcohol Use: Occasionally Medication / Allergies Home Medications: Home Medications 3 Medication Instructions Recorded Confirmed Type methimazole 5 mg tablet 5 mg PO QDAY tab 05/10/17 09/07/17 History hydrocodone 10 mg-acetaminophen 1 tab PO Q4-6H PRN #90 tab 07/07/17 09/07/17 Rx 325 mg tablet pantoprazole 40 mg tablet,delayed 40 mg PO QDAY #90 tab 07/15/17 09/07/17 Rx release Allergies/Adverse Reactions: Allergies 3 Allergy/AdvReac Type Severity Reaction Status Date / Time No Known Drug Allergies Allergy NOT Verified 09/06/17 18:40 APPLICABLE Review of Systems - Review of Systems All Systems: Reviewed & No Additional Complaints Except as Stated Exam - General Additional General Exam Details: Appears tired, dehydrated - Head Head Exam: Normal Inspection - Eye Eye Exam: POSITIVE: Normal Appearance - ENT ENT Exam: POSITIVE: Mucous Membranes Dry - Neck Neck Exam: Thyromegaly - Respiratory Respiratory Exam: POSITIVE: Clear to Auscultation - Bilaterally - Cardiovascular Cardiovascular Exam: POSITIVE: RRR - GI/Abdominal GI/Abdominal Exam: POSITIVE: Normal Bowel Sounds, Non Distended, Soft, No Organomegaly Additional GI/Abdominal Exam Details: Some minimal tenderness in the mid lower abdomen more towards the right side - Rectal Rectal Exam: POSITIVE: Deferred - External Exam: POSITIVE: Deferred Exam: POSITIVE: Deferred - Extremities Extremities Exam: POSITIVE: Normal Inspection - Back Back Exam: POSITIVE: Normal Inspection - Neurological Neurological Exam: POSITIVE: Alert, Oriented x 3, CN II-XII Intact, Moves All Extremities Equally, Motor Sensory Deficit - Psychiatric Psychiatric Exam: POSITIVE: Normal Affect - Integumentary Integumentary Exam: POSITIVE: Normal Color Results - Labs CBC and BMP: 09/07/17 03:58 09/07/17 03:58 - Imaging Status: Report Reviewed by Me (CT abdomen and pelvis showed thickening of the cecal wall with edema. The cecum does show enhancement making ischemic disease less likely. This may represent typhlitis although this typically is associated with immunosuppressed patients. C. Difficile colitis is a possibility as well. There is no periserosal inflammatory/infiltrative change associated with the cecum. The appendix is not visualized and may be surgically absent.) Assessment and Plan - Patient Problems (1) Influenza B Current Visit: Yes Status: Acute Comment: Will put him on Tamiflu. Code(s): J10.1 - Influenza due to other identified influenza virus with other respiratory manifestations (2) Nausea and vomiting Current Visit: Yes Status: Acute Priority: Medium Onset Date: ~09/03/17 Comment: There is some thickening and edema of the right cecum maybe this is responsible for his symptoms. Will treat him symptomatically in addition to continuation of antibiotics. Repeat his labs in the morning. Will puts him on clear liquid Code(s): R11.2 - Nausea with vomiting, unspecified (3) Hyperthyroidism Current Visit: No Status: Chronic Onset Date: 07/22/16 Comment: Continue methimazole Code(s): E05.90 - Thyrotoxicosis, unspecified without thyrotoxic crisis or storm
[2017-09-06] MEDS ORDERED: Sodium Chloride 0.9% 1,000 ML PRIMARY IV SCH (23:30)
[2017-09-06] MEDS ORDERED: MORPHINE SULFATE 2 MG/1 ML IVP PRN (23:45)
[2017-09-06] MEDS ORDERED: HYDROcodone-APAP 10 MG-325 MG TABLET PO PRN (23:45)
[2017-09-07] MEDS ORDERED: OSELTAMIVIR PHOSPHATE 75 MG CAPSULE PO ONE (00:44)
[2017-09-07] MEDS: OSELTAMIVIR PHOSPHATE 75 MG CAPSULE PO SCH ×3 (01:16→20:17)
[2017-09-07 05:08] LABS: BASOPHILS # (AUTO) 0.01 10*3/UL; BASOPHILS % (AUTO) 0.1 % (0-1); EOSINOPHILS # (AUTO) 0 10*3/UL; EOSINOPHILS % (AUTO) 0 % (0-8); Hematocrit [HCT] 39.9 % (42.0-52.0); Hemoglobin [HGB] 13.3 g/dL (14.0-18.0); MEAN CORPUSCULAR HGB CONC 33.3 g/dL (33-37); MEAN CORPUSCULAR VOLUME 89.9 FL (80-90); MEAN PLATELET VOLUME 10.4 FL (7.4-12.2); MONOCYTES # (AUTO) 1.19 10*3/UL (0.3-0.8); MONOCYTES % (AUTO) 9.8 % (5-15); NEUTROPHILS # (AUTO) 9.96 10*3/UL; NEUTROPHILS % (AUTO) 81.7 % (50-80); RED BLOOD COUNT 4.44 10^6/uL (4.70-6.10)
[2017-09-07 05:21] LABS: BLOOD UREA NITROGEN 28 mg/dL (7-22); BUN/CREATININE RATIO 31.11 (6-20)
[2017-09-07 05:25] LABS: PLATELET MORPHOLOGY COMMENT NORMAL MORPHOLOGY (NORM); RBC MORPHOLOGY COMMENT NORMAL MORPHOLOGY (NORM); WBC MORPHOLOGY COMMENT NORMAL MORPHOLOGY (NORM)
[2017-09-07] MEDS: PANTOPRAZOLE 40 MG TABLET PO SCH (08:39)
[2017-09-07] MEDS: Methimazole Tab 5 MG TAB PO SCH (08:44)
--- NOTE | 2017-09-07 10:09 | PDOC(PROG) ---
Date and Time of Service: 09/07/2017 Interval History: Subjective He said he feels better today compared to yesterday. The pain is mostly gone. The nausea is gone. However he still have the diarrhea had 2 loose bowel movements today. He denied sore throat or runny nose. Objective : Data - Labs CBC and BMP: 09/07/17 03:58 09/07/17 03:58 Objective : Exam - General General Appearance: No Acute Distress, Cooperative - Head Head Exam: Normal Inspection, Atraumatic - Eye Eye Exam: Normal Appearance - ENT ENT Exam: Normal Exam - Neck Neck Exam: Normal Inspection - Respiratory Additional Respiratory Exam Details: Decreased air entry mostly clear - Cardiovascular Cardiovascular Exam: RRR - GI/Abdominal GI/Abdominal Exam: Normal Bowel Sounds, Non Distended, Soft, No Organomegaly Additional GI/Abdominal Exam Details: Slight tenderness still present in the midst lower abdomen - Rectal Rectal Exam: Deferred - External Exam: Deferred - Extremities Extremities Exam: Normal Inspection - Back Back Exam: Normal Inspection - Neurological Neurological Exam: Alert, Oriented x 3, CN II-XII Intact, Speech Intact / Clear , Moves All Extremities Equally - Psychiatric Psychiatric Exam: Normal Affect - Integumentary Integumentary Exam: Normal Color Assessment and Plan - Patient Problems (1) Influenza B Current Visit: Yes Status: Acute Comment: Continue Tamiflu. Code(s): J10.1 - Influenza due to other identified influenza virus with other respiratory manifestations (2) Nausea and vomiting Current Visit: Yes Status: Acute Priority: Medium Onset Date: ~09/03/17 Comment: This is be resolved. There is some thickening and edema of the cecal wall continue antibiotics. Repeat his labs tomorrow. Code(s): R11.2 - Nausea with vomiting, unspecified (3) Hyperthyroidism Current Visit: No Status: Chronic Onset Date: 07/22/16 Comment: Same med Code(s): E05.90 - Thyrotoxicosis, unspecified without thyrotoxic crisis or storm (4) DVT prophylaxis Current Visit: Yes Status: Acute Comment: Will puts him on Lovenox
--- NOTE | 2017-09-07 13:21 | PDOC(PROG) ---
Date and Time of Service: 09/07/2017 1 PM Interval History: Patient reports she feels better than last night. He is hungry and wants to try some solid foods. He has tolerated clear liquids. No further nausea or vomiting. He reports his abdominal pain is much less. His back pain is much better. He continues to have diarrhea. He is passing gas with the diarrhea. Stool studies were negative. White count is coming down. Objective : Data - Labs CBC and BMP: 09/07/17 03:58 09/07/17 03:58 - Imaging Imaging Details: X-rays from last night reviewed with the radiologist. Again other than thickening and edema of the; right colon wall there is no other changes to suggest ischemia or periserosal inflammatory changes. - Vital Signs Vital Signs and I&O: Vital Signs - Last Taken Temperature 98.6 F 09/07/17 12:57 Pulse Rate 66 09/07/17 12:57 Respiratory Rate 16 09/07/17 12:57 Blood Pressure 109/63 09/07/17 12:57 Pulse Ox 98 09/07/17 12:57 Intake and Output (24hr x 4 totals) 09/05/17 09/06/17 09/07/17 09/08/17 05:59 05:59 05:59 05:59 Intake Total 120 / 120 Output Total 200 / 200 Balance -200 / 1800 120 / 120 Objective : Exam - General General Appearance: No Acute Distress, Cooperative - Respiratory Respiratory Exam: Clear to Auscultation - Bilaterally, Breathing Non Labored - Cardiovascular Cardiovascular Exam: RRR, No Murmur - GI/Abdominal GI/Abdominal Exam: Normal Bowel Sounds, Non Distended, Soft Additional GI/Abdominal Exam Details: Still has some right lower quadrant tenderness but much less than prior. No signs of peritoneal irritation. - Neurological Neurological Exam: Alert, Oriented x 3 - Psychiatric Psychiatric Exam: Normal Affect, Normal Mood Assessment and Plan - Patient Problems (1) Right lower quadrant abdominal pain Current Visit: Yes Status: Acute Priority: High Onset Date: ~09/02/17 Comment: Improving. Stool studies negative. White count decreasing. Discussed with Dr. Butler. We will increase diet. We will follow him clinically and check labs in the morning. Code(s): R10.31 - Right lower quadrant pain (2) Diarrhea Current Visit: Yes Status: Acute Priority: Medium Onset Date: ~09/04/17 Comment: Secondary to underlying disease process. Final stool cultures pending. Code(s): R19.7 - Diarrhea, unspecified (3) Nausea and vomiting Current Visit: Yes Status: Acute Priority: Medium Onset Date: ~09/03/17 Comment: Resolved. Code(s): R11.2 - Nausea with vomiting, unspecified
[2017-09-07] MEDS ORDERED: ENOXAPARIN SODIUM 40 MG/0.4 ML SYRINGE SUBCUT SCH (14:00)
[2017-09-07] MEDS ORDERED: Ertapenem Inj 1 GM in Sodium Chloride 0.9% 100 ML IV SCH (23:00)
[2017-09-07] MEDS ORDERED: OSELTAMIVIR PHOSPHATE 75 MG CAPSULE PO SCH (23:32)
[2017-09-08 05:37] LABS: BASOPHILS # (AUTO) 0.01 10*3/UL; BASOPHILS % (AUTO) 0.1 % (0-1); EOSINOPHILS # (AUTO) 0.03 10*3/UL; EOSINOPHILS % (AUTO) 0.4 % (0-8); Hemoglobin [HGB] 13.7 g/dL (14.0-18.0); LYMPHOCYTES # (AUTO) 1.58 10*3/uL; MEAN CORPUSCULAR HGB CONC 33.4 g/dL (33-37); MEAN CORPUSCULAR VOLUME 89.7 FL (80-90); MEAN PLATELET VOLUME 10.6 FL (7.4-12.2); MONOCYTES # (AUTO) 0.76 10*3/UL (0.3-0.8); MONOCYTES % (AUTO) 10.2 % (5-15); NEUTROPHILS # (AUTO) 5.06 10*3/UL; NEUTROPHILS % (AUTO) 67.7 % (50-80); RED BLOOD COUNT 4.57 10^6/uL (4.70-6.10)
[2017-09-08 05:42] LABS: PLATELET MORPHOLOGY COMMENT NORMAL MORPHOLOGY (NORM); RBC MORPHOLOGY COMMENT NORMAL MORPHOLOGY (NORM); WBC MORPHOLOGY COMMENT NORMAL MORPHOLOGY (NORM)
[2017-09-08 05:49] LABS: BLOOD UREA NITROGEN 23 mg/dL (7-22); BUN/CREATININE RATIO 25.55 (6-20)
[2017-09-08] MEDS: PANTOPRAZOLE 40 MG TABLET PO SCH (07:43)
[2017-09-08 07:45] VITALS: BP 117/65; RESP 20; TEMP 98.2; O2SAT 98
[2017-09-08] MEDS ORDERED: ENOXAPARIN SODIUM 40 MG/0.4 ML SYRINGE SUBCUT SCH (09:00)
[2017-09-08] MEDS: OSELTAMIVIR PHOSPHATE 75 MG CAPSULE PO SCH (09:04)
[2017-09-08] MEDS: Methimazole Tab 5 MG TAB PO SCH (09:05)
--- NOTE | 2017-09-08 09:18 | DCSUMMARY ---
Hospitalization Summary Admit Date: 09/06/2017 Discharge Date: 09/08/17 Hospital Course: Discharge diagnoses 1. Edema and thickening of the cecal wall unclear reason, clinically improved 2. Influenza B 3. History of hyperthyroidism 4. History of PE before 5. History of colonic polyp 6. History of chronic pain syndrome Hospital course This is an 82 years old male with medical history significant for history of hypothyroidism, history of previous PE, history of colonic polyp and chronic pain syndrome who presented to the hospital with history of nausea, vomiting and abdominal pain with diarrhea. His symptoms started 3-4 days before admission. He said he is not eating much the last few days, he was having multiple bowel movements. There was no blood. He had nausea the last few days before presentation and did vomit small amounts on the day of admission. He also reported pain in the belly more towards the lower right and midabdomen. It is variable in intensity. Because of these symptoms he came into the ER. His was diagnosed with influenza, evaluation in the ER revealed elevated white count, and he was positive for influenza B, and in addition he had the CT of the abdomen which showed thickening and edema of the cecal wall. He was seen by Dr. Brambila who suggested Invanz and admission to the hospitalist service. His exam when I saw him was remarkable for tenderness in the right lower midabdomen. We did start him also on Tamiflu. With hydration his symptoms started to improve. On the day of discharge there was no more diarrhea , his white count went down to normal and his CRP was also improving there was no tenderness in his abdomen. He wanted to go home he tolerated regular diet, we thought he could be discharged home and he will follow-up with Dr. Brambila as an outpatient. the exact reason for the thickening and edema of the cecum is not clear. But we elected to treat him with antibiotics. We did also treat his influenza. Laboratory Results 09/08/17 09/08/17 Range/Units 04:40 04:40 WBC 7.48 (4.8-10.8) 10^3/uL RBC 4.57 L (4.70-6.10) 10^6/uL Hgb 13.7 L (14.0-18.0) g/dL Hct 41.0 L (42.0-52.0) % MCV 89.7 (80-90) FL MCH 30.0 (27-31) PG MCHC 33.4 (33-37) g/dL RDW Std Deviation 42.2 (39-50) fL RDW Coeff of Sj 13.1 (11.5-14.5) % Plt Count 185 (140-350) 10*3/uL MPV 10.6 (7.4-12.2) FL Immature Gran % (Auto) 0.5 (0-5) % Neut % (Auto) 67.7 (50-80) % Lymph % (Auto) 21.1 (10-50) % Hunt % (Auto) 10.2 (5-15) % Eos % (Auto) 0.4 (0-8) % Baso % (Auto) 0.1 (0-1) % Immature Gran # (Auto) 0.04 10*3/UL Neut # (Auto) 5.06 10*3/UL Lymph # (Auto) 1.58 10*3/uL Hunt # (Auto) 0.76 (0.3-0.8) 10*3/UL Eos # (Auto) 0.03 10*3/UL Baso # (Auto) 0.01 10*3/UL WBC Morphology Comment Normal morphology (NORM) Plt Morphology Comment Normal morphology (NORM) RBC Morph Comment Normal morphology (NORM) Sodium 138 (135-145) meq/L Potassium 4.3 (3.8-5.2) meq/L Chloride 109 (98-112) meq/L Carbon Dioxide 19 L (23-33) meq/L Anion Gap 10 (5-20) BUN 23 H (7-22) mg/dL Creatinine 0.9 (0.70-1.50) mg/dL BUN/Creatinine Ratio 25.55 H (6-20) Glucose 77 L (78-110) mg/dL Calculated Osmolality 288.0 (267-292) mOsm/kg Calcium 8.0 L (8.7-10.7) mg/dL C-Reactive Protein 8.3 H (0.0-0.9) mg/dL Discharge instruction Diet regular Activity as started on medications Current Medication(s) 3 Medication Instructions Recorded Confirmed Type methimazole 5 mg tablet 5 mg PO QDAY tab 05/10/17 09/07/17 History hydrocodone 10 mg-acetaminophen 1 tab PO Q4-6H PRN #90 tab 07/07/17 09/07/17 Rx 325 mg tablet pantoprazole 40 mg tablet,delayed 40 mg PO QDAY #90 tab 07/15/17 09/07/17 Rx release Amoxicillin/Potassium Clav 1 ea PO BID #10 tab 09/08/17 Rx [Augmentin 875-125 Tablet] Oseltamivir Phosphate [Tamiflu] 75 mg PO BID #6 cap 09/08/17 Rx Follow-up with the PCP in 1-2 weeks, follow-up with Dr. Brambila next week Condition at discharge was stable for discharge Exam - Vitals Vital Signs: Vital Signs Temperature 98.2 F Temperature Source Oral Pulse Rate [Bilateral Dorsalis 65 Pedis] Pulse Rate [Pulse Oximeter] 62 Pulse Rate 84 Respiratory Rate 20 Blood Pressure [Right Arm] 117/65 Blood Pressure 113/64 Pulse Ox 98 Oxygen Flow Rate 2 Oxygen Delivery Method Nasal Cannula Height 5 ft 9 in Weight 197 lb 8 oz - General General Appearance: No Acute Distress, Cooperative, Obese - Head Head Exam: Normal Inspection, Atraumatic - Eye Eye Exam: POSITIVE: Normal Appearance - ENT ENT Exam: POSITIVE: Normal Exam - Neck Neck Exam: Normal Inspection - Respiratory Respiratory Exam: POSITIVE: Clear to Auscultation - Bilaterally - Cardiovascular Cardiovascular Exam: POSITIVE: RRR - GI/Abdominal GI/Abdominal Exam: POSITIVE: Normal Bowel Sounds, Non Distended, Soft, No Organomegaly Additional GI/Abdominal Exam Details: The tenderness seemed to be resolved. - Rectal Rectal Exam: POSITIVE: Deferred - External Exam: POSITIVE: Deferred Exam: POSITIVE: Deferred - Extremities Extremities Exam: POSITIVE: Normal Inspection - Back Back Exam: POSITIVE: Normal Inspection - Neurological Neurological Exam: POSITIVE: Alert, Oriented x 3, Normal Gait, CN II-XII Intact , Speech Intact / Clear, Moves All Extremities Equally - Psychiatric Psychiatric Exam: POSITIVE: Normal Affect - Integumentary Integumentary Exam: POSITIVE: Normal Color Patient Problems - Patient Problem List (1) Influenza B Status: Acute Code(s): J10.1 - Influenza due to other identified influenza virus with other respiratory manifestations Category: Medical (2) Nausea and vomiting Status: Acute Onset Date: ~09/03/17 Priority: Medium Code(s): R11.2 - Nausea with vomiting, unspecified Category: Medical (3) Hyperthyroidism Status: Chronic Onset Date: 07/22/16 Code(s): E05.90 - Thyrotoxicosis, unspecified without thyrotoxic crisis or storm Category: Medical (4) DVT prophylaxis Status: Acute Category: Medical
== END 2017-09-08 10:04 | disposition home or self-care (01) | DRG 195 ==
LOC: ER 18:38 → MED/SURG 22:40
PROVIDERS: ADMIT Internal Medicine; ATTEND Internal Medicine

== ENCOUNTER 2018-09-19 05:49 | Inpatient (IN) ==
[2018-09-19] MEDS ORDERED: Lactated Ringers 1,000 ML PRIMARY IV SCH ×2 (06:00→11:45)
[2018-09-19] MEDS ORDERED: Ketorolac Inj 30 MG, Morphine Inj (Ortho Cocktail) 5 MG, BUPivacaine Inj 0.25% PF 150 MG SPLASH ONE ×3 (06:00)
[2018-09-19] MEDS ORDERED: Nasal Sanitizer POPSWAB ampule 3 AMP (Nozin) PREOP DOSE ENOS SCH (06:00)
[2018-09-19] MEDS ORDERED: BUPivacaine Liposome/PF (Exparel) Inj 20ml vial INFIL ONE ×2 (06:00→07:45)
[2018-09-19] MEDS ORDERED: LIDOCAINE W/ SODIUM BICARB 0.5 ML SYR SUBD ONE (06:00)
[2018-09-19] MEDS ORDERED: ceFAZolin Inj 2gm (Premix) 2 GM/50 ML BAG IV ONE ×2 (06:00→06:04)
[2018-09-19] MEDS ORDERED: LIDOCAINE W/ SODIUM BICARB 0.5 ML SYR ONE (06:04)
[2018-09-19] MEDS ORDERED: Lactated Ringers 1,000 ML PRIMARY IV ONE (06:04)
[2018-09-19] MEDS ORDERED: Ropivacaine 0.2% VIAL 20 ML ONE (07:09)
[2018-09-19] MEDS ORDERED: MIDAZOLAM HCL 2 MG/2 ML VIAL ONE (07:09)
[2018-09-19] MEDS ORDERED: BUPIVACAINE 0.5% W/EPI MPF -30 ML VIAL IV ONE (07:09)
[2018-09-19] MEDS ORDERED: fentaNYL Inj 250 MCG/5 ML VIAL ONE (07:09)
[2018-09-19] MEDS ORDERED: LIDOCAINE HCL 2 % 10 ML JELLY URO-JECT TOPICAL ONE ×2 (07:10→07:36)
[2018-09-19] MEDS ORDERED: DEXAMETHASONE PF 10 MG/1 ML VIAL ONE (07:10)
--- NOTE | 2018-09-19 07:31 | CRNA.PROCE ---
Nerve Block Documentation - - Safety Measures: Time Out Taken, Site Verified - - Type of Nerve Block Used: Left Femoral Nerve Block (Analhesia block for patellar/femoral ligament reconstruction.) Position for Nerve Block: Supine Moniters Used During Block: EKG, SPO2, NIBP Oxygen Supplemented: Yes Sedation Used - Enter Amount in Comment Field [ANES.SEDAT]: Midazolam (mg): Yes (2), Fentanyl (mcg): Yes (50) Skin Prep Used: ChloroPrep (Erna) Draped: No Technique: Nerve Stimulator Nerve Block Needle Used: BeGo 50 mm Stimulation Hz: 1 Stimulation Staring mA: 1.8 Stimulation Ending mA: 0.6 Local Anesthetic - Enter Amt in Comment Field [ANES.LOCNB]: 0.5 % Bupivicaine with Epinephrine 1:200,000 (mL): Yes (15 ml), 0.2 % Ropivacaine (mL): Yes (15 ml) Additives to Nerve Blocks: Dexamethasone (mg): Yes (10) - - PreOp Block : Time In: 07:11 PreOp Block : Time Out: 07:20 Anesthesia Time - Other Weight: 93.44 kg Height: 5 ft 9 in Body Mass Index (BMI): 30.4
--- NOTE | 2018-09-19 07:31 | CRNA.PROGR ---
Anesthesia Time - Procedure/Recovery Time Start Date: 09/19/18 End Date: 09/19/18 Anesthesia : Time In: 07:54 Anesthesia : Time Out: 10:57 Anesthesia : Total Time: 183 - Block Time PreOp Block : Time In: 07:11 PreOp Block : Time Out: 07:20 - Total Anesthesia Time Total Anesthesia Time (minutes): 183 - Other Weight: 93.44 kg Height: 5 ft 9 in Body Mass Index (BMI): 30.4 Physical Status: P3 Anesthesia Type: General Anesthesia : ET
[2018-09-19] MEDS ORDERED: KETAMINE HCL 100 MG/2 ML SYRINGE IV ONE (07:43)
[2018-09-19] MEDS ORDERED: ROCURONIUM 10 MG/1 ML - 5 ML VIAL IVP ONE (07:43)
[2018-09-19] MEDS ORDERED: Sodium Chloride 0.9% vial 0 ML ONE (07:46)
[2018-09-19] MEDS ORDERED: BACITRACIN 50,000 UNIT VIAL IRRIG ONE ×2 (07:47→07:55)
[2018-09-19] MEDS ORDERED: Sodium Chloride 0.9% vial 10 ML ONE ×2 (07:47→07:54)
[2018-09-19] MEDS ORDERED: Sodium Chloride 0.9% 250 ML ONE (07:52)
--- NOTE | 2018-09-19 10:33 | ORTHO.OP ---
- - -: See Dictated Operative Report Procedure Codes - Lower Extremity/Knee Procedures Primary Lower Extremity Procedure Code: Other CPT Code(s) (CPT code 86502 Dr Samaniego and Aneta Mora assisted)
[2018-09-19] MEDS ORDERED: HYDROmorphone 2 MG/1 ML ONE (11:07)
[2018-09-19] MEDS: HYDROmorphone 2 MG/1 ML IVP PRN ×3 (11:08→11:35)
[2018-09-19] MEDS ORDERED: ATROPINE SULFATE 0.4 MG/1 ML VIAL IVP PRN (11:41)
[2018-09-19] MEDS ORDERED: Ondansetron ODT Tab 8 MG TAB PO PRN ×2 (11:41→11:55)
[2018-09-19] MEDS ORDERED: ONDANSETRON 4 MG/2 ML VIAL IVP PRN ×2 (11:41→11:55)
[2018-09-19] MEDS ORDERED: LIDOCAINE W/ SODIUM BICARB 0.5 ML SYR SUBD PRN (11:41)
--- NOTE | 2018-09-19 11:48 | CRNA.PROGR ---
Anesthesia Recovery Phase I - Post Anesthesia Evaluation Patient's Condition on Arrival in Phase I: Stable Patient's Condition on Arrival in Phase II: Stable Pain Level: 7 (medicated-resolved pain issue.)
--- NOTE | 2018-09-19 11:48 | CRNA.PROGR ---
Post Anesthesia Phase II - Post Anesthesia Phase II Patient Stable and Discharged To: Med/Surg Care Assumed By Surgeon: Rafael Camacho MD Temperature: 97.1 F Pulse Rate: 77 Respiratory Rate: 18 Blood Pressure: 143/84 Pulse Ox: 94 Total Graham Score at Discharge: 9 Post Anesthesia Discharge Criteria Met: Yes
[2018-09-19] MEDS ORDERED: FUROSEMIDE 20 MG TABLET PO PRN (11:55)
[2018-09-19] MEDS ORDERED: ACETAMINOPHEN 325 MG TABLET PO PRN (11:55)
[2018-09-19] MEDS ORDERED: BISACODYL 10 MG SUPPOSITORY RECTAL PRN (11:55)
[2018-09-19] MEDS ORDERED: Prochlorperazine Tab 10 MG TAB PO PRN (11:55)
[2018-09-19] MEDS ORDERED: BISACODYL 5 MG TABLET PO PRN (11:55)
[2018-09-19] MEDS ORDERED: Methimazole Tab 5 MG TAB PO SCH (11:55)
[2018-09-19] MEDS ORDERED: diphenhydrAMINE 25 MG CAPSULE PO PRN (11:55)
[2018-09-19] MEDS ORDERED: HYDROmorphone 2 MG/1 ML IVP PRN (11:55)
[2018-09-19] MEDS ORDERED: CALCIUM CARBONATE 500 MG (TUMS) CHEWABLE TABLET PO PRN (11:55)
--- NOTE | 2018-09-19 12:11 | DI ---
LEFT KNEE, 09/19/2018 7:57 AM: Clinical History: Status post total knee replacement. Osteoarthritis. Previous Exam: 03/09/2018. Views: AP and lateral. Patient is status post right patellofemoral joint replacement. The femoral component is to the anteri or trochlear groove, and there is a metallic based implant on the undersurface of the patella. The pr osthetic joint articulates normally. A drain tube is present. Reading: Status post left patellofemoral knee joint replacement. The prosthetic joint articulates normally.
[2018-09-19] MEDS: Lactated Ringers 1,000 ML PRIMARY IV SCH ×2 (12:34→22:57)
[2018-09-19] MEDS: HYDROcodone-APAP 10 MG-325 MG TABLET PO PRN ×2 (12:34→16:32)
[2018-09-19] MEDS: ceFAZolin Inj 2gm (Premix) 2 GM/50 ML BAG IV SCH (16:32)
--- NOTE | 2018-09-19 16:52 | PTI REPORT ---
Thank you for the referral of Silvino Alcocer. He was seen on 09/19/18 for an inpatient evaluation status post left total knee arthroplasty. SUBJECTIVE: The patient is an 83-year-old male who underwent a left total knee replacement earlier today. The patient states he is doing pretty well as he received a pain pill approximately two hours ago which has helped with some of his chronic back pain that he has as well. The patient states that he is still pretty numb down his left lower extremity but he is able to pumps his ankles back and forth. The patient states that he would really like to stand up as his back does get sore from laying down. He states he is very willing to participate with therapy. The patient lives here in [place] with his . They live in a one level home that has two stairs to access the home. Prior to surgery the patient was not using any type of assistive device for ambulation and was not on any oxygen. PAST MEDICAL HISTORY: Past medical history can be found in the patient's medical record. OBJECTIVE FINDINGS: General observations: The patient was alert and oriented to setting upon PT arrival. The patient had a catheter in place along with a drain. He was on 3.5 liters of oxygen and did have an IV in place as well. The patient's blood pressure was taken in a supine position and was 138/74. His heart rate was 78 beats per minute. His oxygen saturation was 92%. Bed mobility: The knee immobilizer was placed on the patient's left lower extremity and the patient required mod assist to go from supine to seated edge of bed. The patient's blood pressure at that time was 156/82. His oxygen saturation was 92%. His heart rate was 80 beats per minute. The patient did require min assist for his initial seated balance. Once he was able to scoot himself toward the edge of the bed and hold onto the railing, he did demonstrate improved seated balance. The patient required mod assist to go from seated edge of bed to supine. Transfers: The patient required two attempts to perform a sit to stand transfer and the bed did have to be raised slightly. The patient required mod assist to complete sit to stand transfer and verbal cues to place hands on the walker. The patient had poor initial standing balance and required hand hold assist x2 to maintain upright position. The patient's blood pressure was 154/84. His oxygen saturation was 93%. His heart rate was 84 beats per minute. The patient denied any lightheadedness or dizziness with standing and stated that it felt really good to stretch out his back. The patient stood x3 minutes. The patient was instructed in stepping backwards and did require mod assist in order to complete that to get right up against the bed. Ambulation: We did attempt to ambulate, but the patient was unable to move the right lower extremity so we were not able to complete the activity. ASSESSMENT: The patient has fair rehab potential secondary to his age and past medical history as well as his complicating factor of chronic low back pain. Problem List: Pain in the left knee Decreased range of motion of the left knee Difficulties with transfers Short-Term Goals: To be met by discharge from inpatient: Patient will be able to transfer from bed to stand safely and independently. Patient will be able to ambulate at least 150 feet with walker safely and independently. Patient will be able to ascend and descend at least two stairs safely and independently with the walker. Long-Term Goals: To be met following discharge from inpatient: Patient will attend outpatient physical therapy for post op knee rehab. TREATMENT PLAN: Patient will be seen B.I.D during the week and one time per day over the weekend as an inpatient to address the above goals and objectives. INITIAL TREATMENT: Treatment today consisted of the initial evaluation followed by one unit of functional activity. Following treatment the patient transferred back into bed. Once supine in bed, his IceMan was hooked back up to his knee, SCD was placed back on the right lower extremity call light was placed within reach, and bed alarm was set. MTDD
[2018-09-19] MEDS: DOCUSATE 100 MG CAPSULE PO SCH (21:44)
--- NOTE | 2018-09-19 22:56 | PDOC ---
HPI - History of Present Illness Date of Service: 09/19/18 Time of Service: 19:00 Chief Complaint: left knee and back pain History of Present Illness: This is a very pleasant 83 YO with Grave's disease, Hx of PE, Hx of paroxysmal atrial fibrillation, HTN, and chronic low back pain with L1 burst fracture who presented today for patello-femoral knee replacement on the left. The patient had been experiencing worsened left knee pain. He takes hydrocodone for the knee and back pain. Post operatively, he denies yokasta nausea, vomiting, chest pain, shortness of breath, or other issues. I reviewed his history and chart, his clinic notes dating back to 2016. Importantly, the patient tells me he is not compliant with methimazole and does not take doses. He appeared to achieve remission fairly quickly from his hyperthyroid state in early 2016, but I do note the last few T4 lab levels have been slowly trending upwards. He has no clinical features or exam features that would suggest worsened hyperthyroid state currently. He is not on any calcium supplementation. There are no intact PTH assessments. No DEXA scans on file here. The patient states his knee pain is controlled post operatively and he is looking forward to starting therapy. Past Medical History Medical History: 1. Bilateral knee osteoarthritis. 2. Admission in 05/2016 after a fall that resulted in L1 fracture and sacral fracture. He also had the laceration under his left axilla. 3. History of PE. 4. Grave's disease since 07/2016, essentially off therapy, euthyroid by most recent labs. 5. Hx of paroxysmal atrial fibrillation. Surgical History: 1. Bilateral cataracts. 2. Hemorrhoid repair. 3. Colonoscopy in 2008 and in June 2017. 4. Esophagogastroduodenoscopy in June 2017. Pertinent Family History: Significant for colon cancer. His mother of a heart attack many years ago. Past Social History: , has 3 kids described as healthy, does not smoke, drinks occasionally. Lives in [place], [place] Tobacco Use: Never Smoker In the Past 12 Months, Have Used or Abuse Any of the Following Substance: None Alcohol Use: Occasionally Medication / Allergies Home Medications: Home Medications Medication Instructions Recorded Confirmed Type furosemide 20 mg tablet 20 mg PO QDAY PRN #90 tab 09/21/17 09/19/18 Rx hydrocodone 10 mg-acetaminophen 1 tab PO Q4-6H PRN #90 tab 07/05/18 09/19/18 Rx 325 mg tablet Pantoprazole Sodium 40 mg PO PRN PRN 09/18/18 09/19/18 History Allergies/Adverse Reactions: Allergies Allergy/AdvReac Type Severity Reaction Status Date / Time No Known Drug Allergies Allergy NOT Verified 09/19/18 11:56 APPLICABLE Review of Systems - Constitutional Constitutional: REPORTS: Negative System Review - Respiratory Respiratory: REPORTS: Negative System Review - Cardiovascular Cardiovascular: REPORTS: Negative System Review - Gastrointestinal Gastrointestinal / Abdominal: REPORTS: Negative System Review - Genitourinary Genitourinary: REPORTS: Negative System Review - Musculoskeletal Musculoskeletal: REPORTS: Back Pain, Joint Pain - Knees - Neurological Neurologic: REPORTS: Negative System Review Exam - Vitals Vital Signs: Vital Signs Temperature 97.6 F Temperature Source Temporal Artery Scan Pulse Rate [Pulse Oximeter] 93 Pulse Rate 76 Respiratory Rate 22 Blood Pressure [Left Arm] 117/63 Blood Pressure 150/89 Pulse Ox 97 Oxygen Flow Rate 3 Oxygen Delivery Method Nasal Cannula Height 5 ft 9 in Weight 206 lb - General General Appearance: No Acute Distress, Cooperative - Head Head Exam: Normal Inspection, Normocephalic, Atraumatic - Eye Eye Exam: POSITIVE: No Scleral Icterus Additional Eye Exam Details: difficult to really tell if he has exopthalmos, but eyes are prominent. - ENT ENT Exam: POSITIVE: Mucous Membranes Moist - Neck Neck Exam: No Tenderness, No Lymphadenopathy - Respiratory Respiratory Exam: POSITIVE: Clear to Auscultation - Bilaterally, Breathing Non Labored - Cardiovascular Cardiovascular Exam: POSITIVE: RRR, No Murmur, No Clicks, No Gallops, No Rubs, No JVD - GI/Abdominal GI/Abdominal Exam: POSITIVE: Normal Bowel Sounds, Non Tender, Non Distended, Soft - Rectal Rectal Exam: POSITIVE: Deferred - External Exam: POSITIVE: Deferred Exam: POSITIVE: Deferred - Extremities Extremities Exam: POSITIVE: No Clubbing Present, No Edema Present, No Cyanosis Present Additional Extremities Exam Details: left knee dressed with cryo dressing. - Neurological Neurological Exam: POSITIVE: Alert, Oriented x 3, No Facial Droop, Speech Intact / Clear - Psychiatric Psychiatric Exam: POSITIVE: Normal Affect, Normal Mood Results - Labs Additional Lab Results: 10/18/12 09/01/18 09/01/18 11:39 08:16 08:16 WBC 6.11 Hgb 16.4 RDW 12.6 Plt Count 208 PT 10.4 INR 1.02 Sodium Potassium Chloride Carbon Dioxide Anion Gap BUN Creatinine BUN/Creatinine Ratio Glucose Calculated Osmolality Calcium NT-Pro-B Natriuret Pep Total Protein Albumin Globulin Triglycerides Cholesterol LDL Cholesterol, Calc VLDL Cholesterol HDL Cholesterol Cholesterol/HDL Ratio TSH Ur Culture Indicated? 09/01/18 09/01/18 09/01/18 08:16 08:16 08:16 WBC Hgb RDW Plt Count PT INR Sodium 140 Potassium 4.4 Chloride 107 Carbon Dioxide 23 Anion Gap 10 BUN 29 H Creatinine 1.0 BUN/Creatinine Ratio 29.00 H Glucose 85 Calculated Osmolality 294.0 H Calcium 9.5 NT-Pro-B Natriuret Pep Total Protein 6.9 Albumin 4.1 Globulin 2.8 Triglycerides 119 Cholesterol 149 LDL Cholesterol, Calc 87.200 VLDL Cholesterol 23 HDL Cholesterol 38 L Cholesterol/HDL Ratio 3.92 TSH 1.20 Ur Culture Indicated? Culture not set 09/06/18 14:25 WBC Hgb RDW Plt Count PT INR Sodium Potassium Chloride Carbon Dioxide Anion Gap BUN Creatinine BUN/Creatinine Ratio Glucose Calculated Osmolality Calcium NT-Pro-B Natriuret Pep 213 Total Protein Albumin Globulin Triglycerides Cholesterol LDL Cholesterol, Calc VLDL Cholesterol HDL Cholesterol Cholesterol/HDL Ratio TSH Ur Culture Indicated? Assessment and Plan - Patient Problems (1) Graves' disease Current Visit: Yes Status: Acute Code(s): E05.00 - Thyrotoxicosis with dif fuse goiter without thyrotoxic crisis or storm (2) History of atrial fibrillation Current Visit: Yes Status: Acute Code(s): Z86.79 - Personal history of other diseases of the circulatory system (3) Patellofemoral arthritis of left knee Current Visit: Yes Status: Acute Code(s): M17.12 - Unilateral primary osteoarthritis, left knee (4) Personal history of pulmonary embolism Current Visit: Yes Status: Chronic Onset Date: 07/22/16 Code(s): Z86.711 - Personal history of pulmonary embolism (5) S/P knee surgery Current Visit: Yes Status: Acute Code(s): Z98.890 - Other specified postprocedural states - Assessment / Plan Additional Assessment/Plan Details: The patient is clinically euthyroid and recent TSH was normal. He appears to be in remission, but admits non-compliance with methimazole. No prescriptions filled since 2017 in [facility] DVT prophylaxis--I would recommend considering lovenox or xarelto given history of PE PT and OT pain meds for acute post operative pain, including IV pain medications if necessary. given hyperthyroidism, I will repeat TSH, free T4, and also get vitamin D level, intact PTH (hyperparathyroidism can also occur with hyperthyroidism)-- the patient should have an outpatient DEXA scan calcium supplementation does not appear to be in thyroid storm I will stop methimazole--patient is not taking. labs in AM thank you for this most interesting consult. hospitalist service will be glad to assist in the patient's care during the hospital stay.
[2018-09-20] MEDS: ceFAZolin Inj 2gm (Premix) 2 GM/50 ML BAG IV SCH (00:28)
[2018-09-20] MEDS: MAG HYDROX/AL HYDROX/SIMETH 30 ML SUSP PO PRN ×2 (03:41→13:05)
[2018-09-20 05:00] LABS: Hematocrit [HCT] 37.8 % (42.0-52.0); MEAN CORPUSCULAR HEMOGLOBIN 30.6 PG (27-31); MEAN CORPUSCULAR HGB CONC 34.4 g/dL (33-37); MEAN CORPUSCULAR VOLUME 88.9 FL (80-90); MEAN PLATELET VOLUME 10.8 FL (7.4-12.2); RED BLOOD COUNT 4.25 10^6/uL (4.70-6.10)
[2018-09-20 05:06] LABS: BLOOD UREA NITROGEN 40 mg/dL (7-22)
[2018-09-20] MEDS: HYDROcodone-APAP 10 MG-325 MG TABLET PO PRN ×2 (07:24→13:05)
--- NOTE | 2018-09-20 08:12 | CRNA.PROGR ---
Anesthesia Note - Progress Notes Anesthesia Progress Note: Sitting up in bed eating breakfast. Cheerful. States he's had no pain. Remembers the pain right after surgery but comfortable since. States he had some indigestion that was relieved by Maalox early this am. Vital Signs - Last Taken Temperature 97 F 09/20/18 07:20 Pulse Rate 80 09/20/18 07:20 Respiratory Rate 20 09/20/18 07:20 Blood Pressure 112/57 09/20/18 07:20 Pulse Ox 98 09/20/18 07:20 Block still working. No apparent anesthetic difficulties.
[2018-09-20] MEDS: DOCUSATE 100 MG CAPSULE PO SCH ×2 (08:55→20:50)
[2018-09-20] MEDS: Calcium/Vit D 600mg/400u Tab 1 TAB TABLET PO SCH ×2 (08:55→20:50)
[2018-09-20] MEDS: ENOXAPARIN SODIUM 30 MG/0.3 ML SYRINGE SUBCUT SCH (08:55)
[2018-09-20] MEDS ORDERED: CHOLECALCIFEROL 1000 IU TABLET PO ONE (09:20)
[2018-09-20] MEDS: Lactated Ringers 1,000 ML PRIMARY IV SCH (11:10)
--- NOTE | 2018-09-20 13:12 | ORTHO.PROG ---
Last Taken Vital Signs: Vital Signs - Last Taken Temperature 98.2 F 09/20/18 10:58 Pulse Rate 91 09/20/18 10:58 Respiratory Rate 21 09/20/18 10:58 Blood Pressure 114/52 09/20/18 10:58 Pulse Ox 96 09/20/18 10:58 Subjective: Patient doing well this morning pain is well-controlled with oral and IV medication Objective: Left leg with dressing in place with Iceman also in place motor and sensory exam is nonfocal. Patient with good pulses brisk refill. Or upper thigh pain no m arked distal swelling or edema at the current time. Laboratory Results 09/20/18 09/20/18 09/20/18 03:48 03:48 03:48 WBC 13.66 H RBC 4.25 L Hgb 13.0 L Hct 37.8 L MCV 88.9 MCH 30.6 MCHC 34.4 RDW Std Deviation 40.9 RDW Coeff of Sj 12.9 Plt Count 221 MPV 10.8 Sodium 136 Potassium 4.3 Chloride 106 Carbon Dioxide 22 L Anion Gap 8 BUN 40 H Creatinine 1.0 BUN/Creatinine Ratio 40.00 H Glucose 117 H Calculated Osmolality 292.0 Calcium 8.5 L Vitamin B12 Vitamin D 25-Hydroxy 31.0 Serum Folate TSH 0.107 L Free T4 1.48 Free T3 pg/mL PTH Intact 09/20/18 09/20/18 03:48 03:48 WBC RBC Hgb Hct MCV MCH MCHC RDW Std Deviation RDW Coeff of Sj Plt Count MPV Sodium Potassium Chloride Carbon Dioxide Anion Gap BUN Creatinine BUN/Creatinine Ratio Glucose Calculated Osmolality Calcium Vitamin B12 443 Vitamin D 25-Hydroxy Serum Folate 13.8 TSH Free T4 Free T3 pg/mL 3.22 PTH Intact 96.0 H Intake and Output - 8hrs 09/19/18 09/19/18 09/20/18 09/20/18 13:59 21:59 05:59 13:59 Intake: IV 1999 377 / 3656 1279 / 3656 200 / 200 Intake Oral Amount 600 / 840 240 / 840 Output: Output, Drainage Amount 150 / 300 150 / 300 Left Knee 150 / 300 150 / 300 Output, Urinary Catheter Amount 45 / 820 175 / 820 600 / 820 850 / 850 Output, Urine Amount 100 / 100 Output, Post Indwelling 20 / 20 Catheter Insertion Output, Estimated Blood Loss 40 / 40 Amount Other: Percent Meal Consumed Breakfast 100% Dinner 100% Lunch 75% Drains Hemovac Left knee Hemovac Output,Number of Bowel 1 1 Movements Weight 93.44 kg 96.933 kg Weight Measurement Method Standing Scale Wheelchair Assessment: Left patellofemoral replacement doing well, drain inadvertently pulled this morning while going to the bathroom Plan: Patient will continue with physical therapy and occupational therapy, pain control, DVT prophylaxis with pneumatic sequentials and Lovenox.
--- NOTE | 2018-09-20 15:18 | OTI REPORT ---
Thank you for the referral of Silvino Alcocer. He was seen on 09/20/18 for an occupational therapy inpatient evaluation status post left total knee arthroplasty. SUBJECTIVE: The patient is an 83-year-old male who ended up having a total knee arthroplasty. The patient reports he lives near [place] with his . He was independent with all ADLs, functional transfers, and driving prior to admission. PAST MEDICAL HISTORY: Past medical history can be found in the patient's medical record. OBJECTIVE FINDINGS: General observations: The patient is non weight-bearing on the left lower extremity for a couple of days secondary to the patellar replacement. Activities of daily living: The patient was instructed in adaptive devices. He does have a fiscal agent as well as a sock aide at home, so he did not want this equipment. He states that his foot is not moving very well so he is going to have difficulty dressing self. We did have the patient don pants with mod assist and socks with max assist. The patient was issued a shoe horn as he stated this would probably assist him once he returns home. Transfers: The patient requires mod assist to transfer from sit to stand and verbal cues to not weight-bear on the left lower extremity. ASSESSMENT: The patient would benefit from at least one more session of occupational therapy to address adaptive devices and equipment to improve his overall safety. Short-Term Goals: To be met by discharge from inpatient: Patient will be able to dress lower extremities with modified independence. Patient will be able to complete toilet transfer with modified independence. Patient will be able to stand at sink x5 minutes to increase activity tolerance and functional standing. Long-Term Goals: To be met following discharge from inpatient: Patient will demonstrate modified independence with all functional transfers and ADLs once he returns home. TREATMENT PLAN: Patient will be seen B.I.D during the week and one time per day over the weekend as an inpatient to address the above goals and objectives. INITIAL TREATMENT: Treatment today consisted of the initial evaluation. The patient practiced donning pants with fiscal agent but still needed mod assist. The patient states he will have his sock aide brought to the hospital. The patient did require max assist to don socks. The patient does have a higher toilet and a shower chair at home. [place]
[2018-09-20] MEDS: PANTOPRAZOLE 40 MG TABLET PO PRN (15:57)
--- NOTE | 2018-09-20 16:09 | PT.PROG ---
Progress Note Progress Note: S. patient stated he is not feeling much in his leg at this time. O. Patient was wheeled to the therapy gym by OT then had heat to his knee and performed supine exercises in the form of; heel slides, quad sets, ankle pumps, short arc quads, seated heel toe raises and sit to stands all x 10. Patient transferred to the wheelchair and was returned to his room where he transferred back to the chair and was left with alarm and call light. A. Patient tolerated therapy fair, he continues to lack quad function at this time. He required mod assist with transfers and bed mobility, Patient would continue to benefit from skilled therapy to increase strength endurance and safety at this time. P. Continue POC.
--- NOTE | 2018-09-20 16:12 | PT.PROG ---
Progress Note Progress Note: when performing transfer to the wheelchair this afternoon Patient's quad gave out and had a near fall, however INTERLOCKER MAINTAINER and nursing staff was able to get him back into the chair safely. Patient reported no pain or problems after. Patient was wheeled to the therapy gym and seen by PT staff for therapy.
[2018-09-20] MEDS ORDERED: Methimazole Tab 5 MG TAB PO ONE (16:18)
--- NOTE | 2018-09-20 16:35 | PDOC(PROG) ---
Date of Service: 09/20/18 Time of Service: 16:19 Interval History: no complaints of chest pain, SOB, N/V we talked about hyperthyroidism today. pain controlled. cannot put weight on left leg yet without immobilizer--had femoral block. Objective : Data - Labs CBC and BMP: 09/20/18 03:48 09/20/18 03:48 Additional Lab Results: 09/20/18 09/20/18 09/20/18 03:48 03:48 03:48 Vitamin B12 443 Vitamin D 25-Hydroxy 31.0 Serum Folate 13.8 TSH 0.107 L Free T4 1.48 Free T3 pg/mL 3.22 PTH Intact 96.0 H Objective : Exam - General General Appearance: No Acute Distress, Cooperative Additional General Exam Details: Vital Signs - Last Taken Temperature 97.5 F 09/20/18 15:53 Pulse Rate 67 09/20/18 15:53 Respiratory Rate 18 09/20/18 15:53 Blood Pressure 124/61 09/20/18 15:53 Pulse Ox 98 09/20/18 15:53 - Eye Eye Exam: No Scleral Icterus - ENT ENT Exam: Mucous Membranes Moist - Neck Neck Exam: JVP is not Raised - Respiratory Respiratory Exam: Clear to Auscultation - Bilaterally, Breathing Non Labored - Cardiovascular Cardiovascular Exam: RRR, No Murmur, No Clicks, No Gallops, No Rubs, No JVD - GI/Abdominal GI/Abdominal Exam: Normal Bowel Sounds, Non Tender, Non Distended, Soft - Extremities Extremities Exam: No Clubbing Present, No Edema Present, No Cyanosis Present - Neurological Neurological Exam: Alert, Oriented x 3, No Facial Droop, Speech Intact / Clear Assessment and Plan - Patient Problems (1) Graves' disease Current Visit: Yes Status: Acute Code(s): E05.00 - Thyrotoxicosis with diffuse goiter without thyrotoxic crisis or storm (2) History of atrial fibrillation Current Visit: Yes Status: Acute Code(s): Z86.79 - Personal history of other diseases of the circulatory system (3) Patellofemoral arthritis of left knee Current Visit: Yes Status: Acute Code(s): M17.12 - Unilateral primary osteoarthritis, left knee (4) Personal history of pulmonary embolism Current Visit: Yes Status: Chronic Onset Date: 07/22/16 Code(s): Z86.711 - Personal history of pulmonary embolism (5) S/P knee surgery Current Visit: Yes Status: Acute Code(s): Z98.890 - Other specified postprocedural states - Assessment / Plan Additional Assessment/Plan Details: discussed with the patient, gave options for treatment of hyperthyroidism, including Tapazole, iodine radiation, surgery. Risks and benefits of both discussed with the patient. He opts for tapazole. I discussed with ortho. We should repeat TSH and free T4 in a couple weeks vitamin D the intact PTH is elevated. however, should be able to treat with vitamin D or other meds. doubt surgery would be needed for parathyroid adenoma should have DEXA scan as outpatient good control of hyperthroidism should hopefully help prevent osteoporosis DVT prophylaxis (particularly with a history of prior PE) --I would recommend a minimum of 14 days PT and OT pain control.
[2018-09-20] MEDS ORDERED: POLYETHYLENE GLYCOL 3350 17 GM POWDER PO ONE (20:56)
[2018-09-20] MEDS ORDERED: POLYETHYLENE GLYCOL 3350 17 GM POWDER PO PRN (20:59)
[2018-09-21 05:17] LABS: Hematocrit [HCT] 37.6 % (42.0-52.0); Hemoglobin [HGB] 13.3 g/dL (14.0-18.0); MEAN CORPUSCULAR HEMOGLOBIN 31.6 PG (27-31); MEAN CORPUSCULAR HGB CONC 35.4 g/dL (33-37); MEAN CORPUSCULAR VOLUME 89.3 FL (80-90); MEAN PLATELET VOLUME 10.8 FL (7.4-12.2); RED BLOOD COUNT 4.21 10^6/uL (4.70-6.10)
[2018-09-21 05:29] LABS: BLOOD UREA NITROGEN 32 mg/dL (7-22); BUN/CREATININE RATIO 35.55 (6-20)
[2018-09-21] MEDS: Methimazole Tab 5 MG TAB PO SCH (08:21)
[2018-09-21] MEDS: DOCUSATE 100 MG CAPSULE PO SCH ×2 (08:22→20:31)
[2018-09-21] MEDS: HYDROcodone-APAP 10 MG-325 MG TABLET PO PRN ×3 (08:22→20:31)
[2018-09-21] MEDS: Calcium/Vit D 600mg/400u Tab 1 TAB TABLET PO SCH ×2 (08:23→20:31)
[2018-09-21] MEDS: PANTOPRAZOLE 40 MG TABLET PO PRN (08:23)
[2018-09-21] MEDS: CHOLECALCIFEROL 1000 IU TABLET PO SCH (08:23)
[2018-09-21] MEDS: ENOXAPARIN SODIUM 30 MG/0.3 ML SYRINGE SUBCUT SCH (08:23)
--- NOTE | 2018-09-21 12:05 | ORTHO.PROG ---
Last Taken Vital Signs: Vital Signs - Last Taken Temperature 97.9 F 09/21/18 11:05 Pulse Rate 85 09/21/18 11:05 Respiratory Rate 19 09/21/18 11:05 Blood Pressure 112/68 09/21/18 11:05 Pulse Ox 92 09/21/18 11:05 Subjective: Patient doing well feels pain well-controlled on oral medications. Objective: Dressing is placed no significant bleeding or drainage. Motor and sensory exam seems to be intact and nonfocal. Small effusion. No calf, thigh pain. Symmetric trace edema in both legs. Laboratory Results 09/21/18 09/21/18 04:38 04:38 WBC 10.85 H RBC 4.21 L Hgb 13.3 L Hct 37.6 L MCV 89.3 MCH 31.6 H MCHC 35.4 RDW Std Deviation 42.1 RDW Coeff of Sj 13.1 Plt Count 208 MPV 10.8 Sodium 140 Potassium 4.1 Chloride 109 Carbon Dioxide 24 Anion Gap 7 BUN 32 H Creatinine 0.9 BUN/Creatinine Ratio 35.55 H Glucose 80 Calculated Osmolality 295.0 H Calcium 9.0 Vital Signs (24 hrs) 09/20/18 15:53 09/20/18 21:00 09/21/18 00:24 Temperature 97.5 F 97.7 F 97.4 F Pulse Rate [Pulse Oximeter] 67 70 70 Respiratory Rate 18 20 16 Blood Pressure [Left Arm] 124/61 112/57 112/52 Pulse Ox 98 94 96 09/21/18 05:00 09/21/18 05:21 09/21/18 07:00 Temperature 98.2 F 97.7 F Pulse Rate [Pulse Oximeter] 76 72 Respiratory Rate 16 17 Blood Pressure [Left Arm] 117/55 129/63 Pulse Ox 95 92 96 09/21/18 11:05 Temperature 97.9 F Pulse Rate [Pulse Oximeter] 85 Respiratory Rate 19 Blood Pressure [Left Arm] 112/68 Pulse Ox 92 Assessment: Left patellofemoral replacement stable Anemia Hyperparathyroidism and hyperthyroidism Plan: Patient will continue with physical therapy strict adhesion to protocol with knee immobilizer and nonweightbearing on left leg until 72 hours. Patient will continue with physical therapy and occupational therapy. Continue with icing. Pain control. DVT prophylaxis with pneumatic sequentials and Lovenox.
--- NOTE | 2018-09-21 16:02 | PDOC(PROG) ---
Date of Service: 09/21/18 Time of Service: 15:59 Interval History: Patient seen and evaluated earlier today with . No complaints of chest pain, shortness breath, nausea or vomiting. Pain is well controlled and doing better with therapy. Did stairs today. Eager to go home and thinking that tomorrow he may go depending on what orthopedics thinks Objective : Data - Labs CBC and BMP: 09/21/18 04:38 09/21/18 04:38 Objective : Exam - General General Appearance: No Acute Distress, Cooperative Additional General Exam Details: Vital Signs - Last Taken Temperature 98.6 F 09/21/18 15:56 Pulse Rate 78 09/21/18 15:56 Respiratory Rate 20 09/21/18 15:56 Blood Pressure 121/61 09/21/18 15:56 Pulse Ox 96 09/21/18 15:56 - Eye Eye Exam: No Scleral Icterus - ENT ENT Exam: Mucous Membranes Moist - Neck Neck Exam: JVP is not Raised - Respiratory Respiratory Exam: Clear to Auscultation - Bilaterally, Breathing Non Labored - Cardiovascular Cardiovascular Exam: RRR, No Murmur, No Clicks, No Gallops, No Rubs, No JVD - GI/Abdominal GI/Abdominal Exam: Normal Bowel Sounds, Non Tender, Non Distended, Soft - Extremities Extremities Exam: No Clubbing Present, No Edema Present, No Cyanosis Present - Neurological Neurological Exam: Alert, Oriented x 3, No Facial Droop, Speech Intact / Clear Assessment and Plan - Patient Problems (1) Graves' disease Current Visit: Yes Status: Acute Code(s): E05.00 - Thyrotoxicosis with diffuse goiter without thyrotoxic crisis or storm (2) History of atrial fibrillation Current Visit: Yes Status: Acute Code(s): Z86.79 - Personal history of other diseases of the circulatory system (3) Patellofemoral arthritis of left knee Current Visit: Yes Status: Acute Code(s): M17.12 - Unilateral primary osteoarthritis, left knee (4) Personal history of pulmonary embolism Current Visit: Yes Status: Chronic Onset Date: 07/22/16 Code(s): Z86.711 - Personal history of pulmonary embolism (5) S/P knee surgery Current Visit: Yes Status: Acute Code(s): Z98.890 - Other specified postprocedural states - Assessment / Plan Additional Assessment/Plan Details: Recommend DVT prophylaxis for a total of 14 days postoperatively. Currently day 2 of 14. PT and OT. Pain control as per orthopedics. We are continuing methimazole, Tuesday through Tuesday 5 mg a day. I recommended repeat TSH and free T4 in 3 weeks. If they are normal, patient can proceed with further surgeries down the road.
[2018-09-22] MEDS: HYDROcodone-APAP 10 MG-325 MG TABLET PO PRN ×2 (03:25→11:30)
[2018-09-22 05:39] LABS: Hematocrit [HCT] 35.7 % (42.0-52.0); Hemoglobin [HGB] 12.3 g/dL (14.0-18.0); MEAN CORPUSCULAR HGB CONC 34.5 g/dL (33-37); MEAN CORPUSCULAR VOLUME 89.9 FL (80-90); RED BLOOD COUNT 3.97 10^6/uL (4.70-6.10)
[2018-09-22 05:59] LABS: BLOOD UREA NITROGEN 34 mg/dL (7-22)
[2018-09-22 08:10] VITALS: BP 124/53; RESP 20; TEMP 98.4; O2SAT 96
[2018-09-22] MEDS: Calcium/Vit D 600mg/400u Tab 1 TAB TABLET PO SCH (08:49)
[2018-09-22] MEDS: CHOLECALCIFEROL 1000 IU TABLET PO SCH (08:50)
[2018-09-22] MEDS: Methimazole Tab 5 MG TAB PO SCH (08:50)
[2018-09-22] MEDS: DOCUSATE 100 MG CAPSULE PO SCH (08:50)
[2018-09-22] MEDS: ENOXAPARIN SODIUM 30 MG/0.3 ML SYRINGE SUBCUT SCH (08:50)
--- NOTE | 2018-09-22 11:56 | OT.PROG ---
Progress Note Progress Note: S: pt reported he is ready to go home. He reported has all of the equipment from past surgeries to assist with getting dressed. O: pt completed sit to stand Ind and completed functional transfer approx 175 ft with use of walker and no breaks. He did need min A with affected leg with bed mobility. He completed UE exercises with RTb in all planes x15 with BUE's to increase strength to assist with bed mobility and sit to stands. He was returned to his room by OT and left upright in chair with call light within reach. A: pt participated well and is cleared for return home. P: continue per POC up until d/c possibly this afternoon.
--- NOTE | 2018-09-22 12:26 | PT.PROG ---
Progress Note Progress Note: S. patient stated he is feeling good and would like to go home. O. Patient ambulated 175 feet to the therapy gym where he had heat to his knee and performed heel slides, quad sets, akle pumps, short arc quads, heel toe raises, hip abduction/adduction, straight leg raises, seated long arc quads, marches, ball squeezes, clam shells, resisted knee flexion, heel toe raises, all x 10 with red thera bands, Patient then performed sit to stands x 10. Patient was stretched then ascended and descended 8 stairs and ambulated 175 feet to his room and was left with call light and alarm. A. Patient tolerated therapy well, he was able to perform all exercises with no increase in pain or problems. Patient continues to require Stand by guard assist with transfers and ambulation, he would continue to benefit from outpatient therapy to increase strength, and endurance at this time. P. Patient has met all goals at this time.
--- NOTE | 2018-09-22 13:14 | ORTHO.PROG ---
Last Taken Vital Signs: Vital Signs - Last Taken Temperature 98.4 F 09/22/18 08:09 Pulse Rate 79 09/22/18 08:09 Respiratory Rate 20 09/22/18 08:09 Blood Pressure 124/53 09/22/18 08:09 Pulse Ox 96 09/22/18 08:09 Subjective: Patient was pain controlled well on oral medication and doing well with therapy Objective: Examination of the left leg shows that actively he still lacks about 20 of extension but passively get better he can flex to 95. He is stable to varus and valgus and 0 and 30 his dressing is clean and dry Silverlon dressing in place. Motor and sensory exam lower extremity is nonfocal. Laboratory Results 09/22/18 09/22/18 04:50 04:50 WBC 8.94 RBC 3.97 L Hgb 12.3 L Hct 35.7 L MCV 89.9 MCH 31.0 MCHC 34.5 RDW Std Deviation 42.3 RDW Coeff of Sj 13.2 Plt Count 198 MPV 11.0 Sodium 136 Potassium 4.4 Chloride 106 Carbon Dioxide 23 Anion Gap 7 BUN 34 H Creatinine 1.0 BUN/Creatinine Ratio 34.00 H Glucose 80 Calculated Osmolality 288.0 Calcium 8.7 Vital Signs (24 hrs) 09/21/18 15:56 09/21/18 19:00 09/21/18 19:09 Temperature 98.6 F 98.8 F Pulse Rate [Pulse Oximeter] 78 87 87 Respiratory Rate 20 20 Blood Pressure [Left Arm] 121/61 118/59 Pulse Ox 96 93 09/21/18 23:01 09/22/18 04:50 09/22/18 08:09 Temperature 98.7 F 98.5 F 98.4 F Pulse Rate [Pulse Oximeter] 80 86 79 Respiratory Rate 18 18 20 Blood Pressure [Left Arm] 119/52 138/65 124/53 Pulse Ox 97 94 96 Assessment: Left patellofemoral replacement doing well Patient with multiple medical issues can be followed by his primary care in regard to his thyroid function Plan: Patient will continue with the oral pain medications as needed for home. We will also have him continue with Xarelto at home for 14 days. He will follow up accordingly for staple removal on about the two-week nj her. We'll see him back sooner for problems activity modification symptomatic care in the meantime. A form for physical therapy was given will continue with physical therapy also placing is crucial and continue to protect the knee as needed.
--- NOTE | 2018-09-22 14:08 | DCSUMMARY ---
Hospitalization Summary Admit Date: 09/19/2018 Discharge Date: 09/22/18 Primary Diagnosis:: status post patella femoral replacement, left knee Hospital Course: 30 pleasant 83-year-old male that presented for left patellofemoral replacement done with Dr. Camacho on 09/19/2018, see his surgical note for further details. He did very well postoperatively from a pain control standpoint and hydrocodone has been controlling his pain. DVT prophylaxis was managed with Lovenox, and the patient will complete Xarelto therapy for his 10-14 days postoperative from knee replacement surgery. That is being managed in conjunction with Dr. Camacho. The patient did not require any blood transfusion while here. He met his physical therapy and occupational therapy goals while here, but will continue to do therapy outside the hospital. In terms of medical conditions, he has hyperthyroidism. This is from Graves' disease. It was well controlled on methimazole which we found out the patient had questionable compliance with. His TSH is now suppressed, so we resumed that and he understands to take it Tuesday through Tuesday. We will keep him on a low- dose to keep his thyroid function in a euthyroid state and recheck his labs in 3 weeks. In addition I checked a PTH which was elevated and suggests hyperparathyroidism, but given the level, I'm not sure that he will need other evaluation. I will defer that to his primary physician. Parathyroid adenoma could certainly be present, but for now I will keep the patient on vitamin D. He might benefit from a DEXA scan but I will defer that to primary care provider. His other medical problems remained stable through the hospital stay. I also placed him on some calcium with vitamin D. No chest pain, shortness breath, nausea or vomiting today. Patient states knee pain is controlled. He is "ready to go home". Assessment and Plan: 1. As per discharge assessments noted 2. Disposition: Patient is discharged home 3. Condition on discharge, stable and improved. 4. Diet: regular diet 5. Activities: As per Dr. Camacho's instructions and physical therapy 6. Follow-Up: 1. Dr. Cardoso in about [address] Camacho's appointment has been scheduled 7. Medications at the Time of Discharge: Home Medications Medication Instructions Recorded Confirmed Type furosemide 20 mg tablet 20 mg PO QDAY PRN #90 tab 09/21/17 09/19/18 Rx Pantoprazole Sodium 40 mg PO PRN PRN 09/18/18 09/19/18 History Methimazole [Tapazole] 5 mg PO DAILY #30 tab 09/21/18 Rx Sildenafil Citrate [Sildenafil] 20 mg PO DAILY PRN 09/21/18 09/21/18 History Cholecalciferol [Vitamin D3] 1,000 iu PO DAILY #90 tab 09/22/18 Rx Docusate Sodium [Colace] 100 mg PO BID #60 cap 09/22/18 Rx HYDROcodone/APAP 10/325 Tab 1 tab PO Q4H PRN #40 tab 09/22/18 Rx [Hydrocodon-Acetaminoph 10/325 Tab] Rivaroxaban [Xarelto] 10 mg PO DAILY #12 tab 09/22/18 Rx 8. Time, care, counseling and coordination of care for this discharge is greater than 30 minutes. Exam - Vitals Vital Signs: Vital Signs Vital Signs - Last Taken Temperature 98.4 F 09/22/18 08:09 Pulse Rate 79 09/22/18 08:09 Respiratory Rate 20 09/22/18 08:09 Blood Pressure 124/53 09/22/18 08:09 Pulse Ox 96 09/22/18 08:09 Height 5 ft 9 in Weight 211 lb 9.6 oz - General General Appearance: No Acute Distress, Cooperative - Head Head Exam: Normal Inspection, Normocephalic, Atraumatic - Eye Eye Exam: POSITIVE: Scleral Icterus - ENT ENT Exam: POSITIVE: Mucous Membranes Moist - Neck Neck Exam: Normal Inspection, No Lymphadenopathy, No Thyromegaly - Respiratory Respiratory Exam: POSITIVE: Clear to Auscultation - Bilaterally, Breathing Non Labored - Cardiovascular Cardiovascular Exam: POSITIVE: RRR, No Murmur, No Clicks, No Gallops, No Rubs, No JVD - GI/Abdominal GI/Abdominal Exam: POSITIVE: Normal Bowel Sounds, Non Tender, Non Distended, Soft - Extremities Extremities Exam: POSITIVE: No Clubbing Present, No Edema Present, No Cyanosis Present Additional Extremities Exam Details: Left knee dressing is clean, dry, intact - Neurological Neurological Exam: POSITIVE: Alert, Oriented x 3, No Facial Droop, Speech Intact / Clear, Moves All Extremities Equally Data Peritnent Studies: 09/20/18 09/20/18 09/20/18 03:48 03:48 03:48 WBC Hgb Hct Plt Count Sodium Potassium Chloride Carbon Dioxide Anion Gap BUN Creatinine BUN/Creatinine Ratio Glucose Calculated Osmolality Calcium Vitamin B12 443 Vitamin D 25-Hydroxy 31.0 Serum Folate 13.8 TSH 0.107 L Free T4 1.48 Free T3 pg/mL 3.22 PTH Intact 96.0 H 09/22/18 09/22/18 04:50 04:50 WBC 8.94 Hgb 12.3 L Hct 35.7 L Plt Count 198 Sodium 136 Potassium 4.4 Chloride 106 Carbon Dioxide 23 Anion Gap 7 BUN 34 H Creatinine 1.0 BUN/Creatinine Ratio 34.00 H Glucose 80 Calculated Osmolality 288.0 Calcium 8.7 Vitamin B12 Vitamin D 25-Hydroxy Serum Folate TSH Free T4 Free T3 pg/mL PTH Intact Patient Problems - Patient Problem List (1) S/P knee surgery Current Visit: Yes Status: Acute Code(s): Z98.890 - Other specified postprocedural states Category: Surgical (2) Graves' disease Current Visit: Yes Status: Acute Code(s): E05.00 - Thyrotoxicosis with diffuse goiter without thyrotoxic crisis or storm Category: Medical (3) History of atrial fibrillation Current Visit: Yes Status: Acute Code(s): Z86.79 - Personal history of other diseases of the circulatory system Category: Medical (4) Patellofemoral arthritis of left knee Current Visit: Yes Status: Acute Code(s): M17.12 - Unilateral primary osteoarthritis, left knee Category: Medical (5) Personal history of pulmonary embolism Current Visit: Yes Status: Chronic Onset Date: 07/22/16 Code(s): Z86.711 - Personal history of pulmonary embolism Category: Medical
--- NOTE | 2018-09-22 15:11 | PT PM DAY ---
Diagnosis : Left Total Knee Arthroplasty PM - Physical Therapy S: The patient states he is doing pretty well this afternoon and is looking forward to participating in therapy. He still is unable to lift his left lower extremity and does not have any quad control at this time. O: Treatment consisted of the patient performing a transfer from bed to wheelchair, demonstrating non weight-bearing on the left lower extremity with a knee immobilizer in place. The patient was brought down to therapy and transferred from wheelchair to bed with non weight-bearing on the left lower extremity and use of walker. Once the patient was supine in bed he received an application of moist heat pack x20 minutes including set up to the posterior side of his left knee. The patient was instructed in therapeutic exercise including quad sets, heel slides with min assist, straight leg raises with mod assist, short arc quads with mod to max assist, four way ankle exercises with red theraband, and glut squeezes. The knee immobilizer was placed on the patient and he performed a supine to seated transfer with min assist x1. The patient then performed 5 sit to stand transfers with the knee immobilizer on the left lower extremity. After this activity the patient took a rest break and then transferred from the bed to the wheelchair with walker and non weight- bearing on the left lower extremity. The patient was brought back up to the room where he transferred from wheelchair to chair with non weight-bearing on the left lower extremity. Once in chair, chair alarm was set, call light was placed within reach, and the patient's IceMan was hooked back up to his knee. A: The patient continues to demonstrate lack of quad control and is unable to perform a straight leg raise or short arc quads without assistance. He is unable to weight-bear through the left lower extremity due to no quad control and continues to need the knee immobilizer in place whenever he is up and moving. P: Continue seeing patient BID during the week and one time per day over the weekend for transfers, ambulation, and range of motion/strengthening exercises. [place]
--- NOTE | 2018-09-22 15:51 | PT AM DAY ---
Diagnosis : Left Total Knee Arthroplasty AM - Physical Therapy S: The patient reports no new changes. O: The patient was seen for open chain exercises and range of motion. He demonstrated 0 to 98 degrees of flexion. He did ambulate with a walker and assist of one, non weight-bearing for approximately 20 feet. A: We are going to review the non weight-bearing precautions with his physician. He currently is at non weight-bearing and we are going to see if that can be lifted at some time. We are going to have a hard time doing steps and stairs and being independent with ADLs until we can get that non weight- bearing status reviewed. Other than that he is doing well. P: Continue seeing patient BID during the week and one time per day over the weekend for transfers, ambulation, and range of motion/strengthening exercises. MTDD
--- NOTE | 2018-09-22 16:21 | PT PM DAY ---
Diagnosis : Left Total Knee Arthroplasty PM - Physical Therapy S: The patient reports no new changes. O: The patient transferred to the therapy unit where he received an application of moist heat pack x20 minutes including set up to the left knee. We started some light open and closed chain exercises. We did get permission from Dr. Samaniego to start weight-bearing activities with that leg and we were able to do sit to stands, boxes, and he even did three stairs with supervision. He was able to ambulate from the therapy unit back to his room today with stand by assist of one. A: The patient stated his leg felt better the more he stepped and walked on it. We will continue to work on more transfers, weight-bearing, ambulatory activities, and transfers tomorrow. Our goal is to hopefully get him to the point where he is ready for discharge tomorrow. P: Continue seeing patient BID during the week and one time per day over the weekend for transfers, ambulation, and range of motion/strengthening exercises. [place]
[2018-09-23] MEDS ORDERED: Rivaroxaban Tab 10 MG TAB PO SCH (09:00)
--- NOTE | 2018-09-25 15:00 | OT AM DAY ---
Diagnosis : Left Total Knee Arthroplasty AM - Occupational Therapy S: The patient reports he is feeling pretty good. His does have adaptive equipment but he wanted to practice using it. O: Today the patient practiced doffing socks with the prop cutter and donning socks with sock aide. He was able to use the sock aide with minimal verbal cues and min assist. He still struggles with how to put the sock on the sock aide and would benefit from at least one more session. The patient was able to stand at sink x4 minutes to complete hygiene activities. A: The patient is improving with his sit to stands. The patient would benefit from one more session to ensure he can use adaptive devices independently and safely. P: Continue seeing patient BID during the week and one time per day over the weekend until discharge. [place]
== END 2018-09-22 14:52 | disposition home or self-care (01) | DRG 470 ==
LOC: OPS 05:49 → MED/SURG 11:42
PROVIDERS: ADMIT Orthopaedic Surgery; ATTEND Orthopaedic Surgery